=== PATIENT | male | born 1940 | race Caucasian/White ===

== ENCOUNTER 2017-02-04 14:57 | Emergency (ER) | payer MEDICARE, OTHER ==
[2017-02-04 15:34] VITALS: BP 156/67
--- NOTE | 2017-02-04 16:25 | EDM.PDOC ---
ED HPI GENERAL MEDICAL PROBLEM - General Chief Complaint: Back Pain or Injury Stated Complaint: BACK PAINS, [id number] Time Seen by Provider: 02/04/17 16:14 Source of Information: Reports: Patient History Limitations: Reports: No Limitations - History of Present Illness INITIAL COMMENTS - FREE TEXT/NARRATIVE: Patient comes emergency Department today with complaints of back spasms in his left lower back that started last night. The patient was vacuuming quite a bit yesterday which he typically does not do as it gives him back spasms in the past. Although his is rather physically disabled recently and he has had to do more housework. Since last night he has had intermittent spasms on his left flank region that started up higher and slowly has moved down his lower back primarily on the lateral aspect. His sharp shooting stabbing intermittent pain on the left side. He denies any numbness or tingling to his lower extremities. He denies any change in his bowel or bladder habits. Denies any pain into his groin or his testicles. He denies any hematuria dysuria. He states that he typically urinates quite frequently and no more than normal over the past 24 hours. He has tried some ibuprofen for this without improvement. Left Lower Back Pain Score (Numeric/FACES): 9 - Related Data Allergies Allergy/AdvReac Type Severity Reaction Status Date / Time amoxicillin Allergy Nausea and Verified 02/04/17 15:34 Vomiting hydrocodone Allergy Indigestion Verified 02/04/17 15:34 tramadol Allergy Hyperactivi Verified 02/04/17 15:34 ty Home Meds: Home Meds Multivitamin [Multivitamins] 1 each PO DAILY 12/23/14 [History] Rosuvastatin [Crestor] 20 mg PO BEDTIME 12/23/14 [History] Cyanocobalamin (Vitamin B-12) [Cyanocobalamin Injection] 1,000 mcg INJECT ASDIRECTED 03/13/15 [History] Aspirin [Ecotrin] 325 mg PO DAILY 02/04/17 [History] Past Medical History HEENT History: Reports: Other (See Below) Other HEENT History: reading glasses Cardiovascular History: Reports: High Cholesterol Respiratory History: Reports: None Gastrointestinal History: Reports: None Genitourinary History: Reports: None Musculoskeletal History: Reports: Arthritis Neurological History: Reports: TIA Psychiatric History: Reports: None Endocrine/Metabolic History: Reports: None Hematologic History: Reports: Other (See Below) Other Hematologic History: LEUKOPENIA Immunologic History: Reports: None Oncologic (Cancer) History: Reports: Prostate Dermatologic History: Reports: None Other Dermatologic History: NEOPLASM OF UNCERTIAN BEHAVIOR; CELLULITUS OF THE R LEG; SEBACOUS HYPERPLASIA - Infectious Disease History Infectious Disease History: Reports: Chicken Pox, Mumps - Past Surgical History HEENT Surgical History: Reports: Cataract Surgery Other Male Surgeries/Procedures: VASECTOMY Musculoskeletal Surgical History: Reports: Knee Replacement, Shoulder Surgery Social & Family History - Family History Family Medical History: Noncontributory - Tobacco Use Smoking Status *Q: Never Smoker Used Tobacco, but Quit: Yes Month Tobacco Last Used: 08/31/1997 Second Hand Smoke Exposure: No - Caffeine Use Caffeine Use: Reports: Coffee - Alcohol Use Days Per Week of Alcohol Use: 7 Number of Drinks Per Day: 2 Total Drinks Per Week: 14 - Recreational Drug Use Recreational Drug Use: No Drug Use in Last 12 Months: No - Living Situation & Occupation Living situation: Reports: , with Family Occupation: Retired ED ROS GENERAL - Review of Systems Review Of Systems: ROS reveals no pertinent complaints other than HPI. ED EXAM,LOWER BACK PAIN/INJURY - Physical Exam Exam: See Below Text/Narrative:: A very pleasant gentleman who is sitting quite comfortably and then all of a sudden has twinges of pain and grabs his left flank region that lasts for a very short period of time and resolves quite quickly and then he has some residual soreness he relates. The intermittent pain lasts for approximately 2-3 seconds. Exam Limited By: No Limitations General Appearance: Alert, WD/WN, No Apparent Distress Neck: Normal Inspection, Supple Respiratory/Chest: No Respiratory Distress, Lungs Clear, No Accessory Muscle Use Cardiovascular: Normal Peripheral Pulses, Regular Rate, Rhythm, No Edema GI/Abdominal: Normal Bowel Sounds, Non-Tender, No Organomegaly, No Distention, No Abnormal Bruit, No Mass (Male) Exam: Deferred Rectal (Males) Exam: Deferred Back Exam: Decreased Range of Motion, Other (Palpation of the posterior does not elicit any tenderness. The patient points to the left posterior axillary line in the flank region when he has a spasms. I do not feel any muscle spasms nor does he have any tenderness in that region on palpation. There is no bony deformity. No crepitus bruising swelling ecchymosis. Negative straight leg raise bilaterally.). No: Paraspinal Tenderness, Vertebral Tenderness Extremities: Normal Inspection. No: Rivera's Sign, Leg Pain Neurological: Alert, Normal Mood/Affect, Normal Dorsiflexion, CN II-XII Intact, Normal Plantar Flexion, Normal Reflexes, No Motor/Sensory Deficits, Oriented x 3 DTR - Lower Extremities: 2+: Knee (R), Knee (L), Ankle (R), Ankle (L) Skin Exam: Warm, Dry, Intact, Normal Color, No Rash Lymphatic: No Adenopathy Course - Vital Signs Last Recorded V/S: Last Vital Signs Temp 36.9 C 02/04/17 15:29 Pulse 86 02/04/17 15:29 Resp 16 02/04/17 15:29 BP 156/67 H 02/04/17 15:29 Pulse Ox 100 02/04/17 15:29 - Orders/Labs/Meds Orders: Active Orders 24 hr Category Date Time Status UA W/MICROSCOPIC [URIN] Stat Lab 02/04/17 16:28 Results Orphenadrine [Norflex] Med 02/04/17 16:30 Active 30 mg IM Q12H Medication Orders Orphenadrine Citrate (Norflex) 30 mg IM Q12H [facility] Last Admin: 02/04/17 16:36 Dose: 30 mg Labs: Laboratory Tests 02/04/17 Range/Units 16:28 Urine Color Yellow (YELLOW) Urine Appearance Clear (CLEAR) Urine pH 7.5 (5.0-9.0) Ur Specific [place] 1.015 (1.005-1.030) Urine Protein Negative (NEGATIVE) Urine Glucose (UA) Negative (NEGATIVE) Urine Ketones Negative (NEGATIVE) Urine Occult Blood Negative (NEGATIVE) Urine Nitrite Negative (NEGATIVE) Urine Bilirubin Negative (NEGATIVE) Urine Urobilinogen 0.2 (0.2-1.0) mg/dL Ur Leukocyte Esterase Negative (NEGATIVE) Meds: Medications Generic Name Dose Route Start Last Admin Trade Name Freq PRN Reason Stop Dose Admin Orphenadrine Citrate 30 mg 02/04/17 16:30 02/04/17 16:36 Norflex IM 30 mg Q12H [facility] Administration - Re-Assessments/Exams Free Text/Narrative Re-Assessment/Exam: 02/04/17 16:54 Urinalysis is negative for any blood. He states that the muscle spasms are much less in intensity and less frequently happening. Her flanks did improve his symptoms quite appropriately. He has used Valium for this in the past and would like to try that again. I did caution him with sedation on this. Use this sparingly. Departure - Departure Time of Disposition: 16:55 Disposition: Home, Self-Care 01 Clinical Impression: Muscle spasm of back - Discharge Information Instructions: Muscle Strain, [id number], Back Injury Prevention, [id number] , Muscle Cramps and Spasms, [id number] Forms: ED Department Discharge Additional Instructions: Tylenol and/or ibuprofen as needed for pain. Heat or ice to the affected area which ever works best for you. Do not bedridden yourself nor due to much physical activity as both these can worsen her symptoms. Valium 2.5 mg 3 times a day when necessary muscle spasms or back pain. Cautioned sedation. Also when standing or making postural movement changes take your times that you do not get lightheaded or dizzy from the medication and fall. Return emergency department if new or worsening symptoms. Recheck primary care provider in the next 4-6 days if not improving sooner if worse. - My Orders Last 24 Hours: My Active Orders 02/04/17 16:28 UA W/MICROSCOPIC [URIN] Stat 02/04/17 16:30 Orphenadrine [Norflex] 30 mg IM Q12H - Assessment/Plan Last 24 Hours: My Active Orders 02/04/17 16:28 UA W/MICROSCOPIC [URIN] Stat 02/04/17 16:30 Orphenadrine [Norflex] 30 mg IM Q12H Assessment:: Muscle spasm back. Plan: Tylenol and/or ibuprofen as needed for pain. Heat or ice to the affected area which ever works best for you. Do not bedridden yourself nor due to much physical activity as both these can worsen her symptoms. Valium 2.5 mg 3 times a day when necessary muscle spasms or back pain. Cautioned sedation. Also when standing or making postural movement changes take your times that you do not get lightheaded or dizzy from the medication and fall. Return emergency department if new or worsening symptoms. Recheck primary care provider in the next 4-6 days if not improving sooner if worse.
[2017-02-04] MEDS ORDERED: Diazepam 5 MG Tab PO ONE (16:52)
[2017-02-04] MEDS ORDERED: Diazepam 5 MG Tab ONE (16:52)
== END 2017-02-04 17:16 | disposition home or self-care (01) ==
LOC: DL.ED 14:57
DX: M62.830 Muscle spasm of back (principal); E78.00 Pure hypercholesterolemia, unspecified; M19.90 Unspecified osteoarthritis, unspecified site; Z88.1 Allergy status to other antibiotic agents; Z88.6 Allergy status to analgesic agent; Z88.8 Allergy status to other drugs, medicaments and biological substances; Z79.899 Other long term (current) drug therapy; Z79.82 Long term (current) use of aspirin; Z98.49 Cataract extraction status, unspecified eye; Z96.659 Presence of unspecified artificial knee joint
CPT/HCPCS: 81001; 96372; 99283; J2360; A9270-GY

== ENCOUNTER 2018-08-27 07:01 | Day surgery (SDC) | payer OTHER, MEDICARE ==
[2018-08-27] MEDS ORDERED: Ondansetron 4 MG/2 ML SDV IV ONE (07:02)
[2018-08-27] MEDS ORDERED: Glycopyrrolate 0.2 MG/ML 2 ML SDV IV ONE (07:02)
[2018-08-27] MEDS ORDERED: Midazolam 1 MG/ML 2 ML SDV IV ONE (07:02)
[2018-08-27] MEDS ORDERED: fentaNYL 100 MCG/2 ML SDV IV ONE (07:02)
[2018-08-27] MEDS ORDERED: Etomidate 2 MG/ML 20 ML SDV IVPUSH ONE (07:02)
[2018-08-27] MEDS ORDERED: Lactated Ringers 1,000 ML IV SCH (07:30)
[2018-08-27] MEDS ORDERED: Lidocaine 1% 30 ML SDV ONE (07:50)
[2018-08-27] MEDS ORDERED: ceFAZolin 1 GM in Premix Bag 1 BAG IV ONE (08:00)
[2018-08-27] MEDS ORDERED: Lidocaine 1% 30 ML SDV INJECT ONE (09:07)
[2018-08-27] MEDS ORDERED: Acetaminophen 325 MG Tab PO ONE (10:10)
[2018-08-27] MEDS ORDERED: fentaNYL 100 MCG/2 ML SDV IVPUSH ONE ×2 (10:13→10:30)
[2018-08-27] MEDS ORDERED: Acetaminophen/oxyCODONE 325-5 MG Tab PO ONE (12:03)
[2018-08-27] MEDS ORDERED: Sodium Chloride 0.9% 10 ML Syringe IV PRN (13:30)
[2018-08-27] MEDS ORDERED: Sodium Chloride 0.9% 10 ML Syringe FLUSH PRN (13:34)
[2018-08-27] MEDS: Morphine 2 MG/ML Syringe IVPUSH PRN ×2 (13:42→17:17)
--- NOTE | 2018-08-27 15:16 | OR ---
DATE: 08/27/2018 PREOPERATIVE DIAGNOSIS: Left inguinal hernia. POSTOPERATIVE DIAGNOSIS: Left inguinal hernia. PROCEDURE: Open repair of left indirect inguinal hernia with mesh. ANESTHESIA: General. ESTIMATED BLOOD LOSS: Minimal. SPECIMEN: Cord lipoma. INDICATION FOR PROCEDURE: This 78-year-old male has a physical examination compatible with a left inguinal hernia. DESCRIPTION OF PROCEDURE: After adequate preparation, a transverse incision was made over the left groin and carried down through the external oblique. The cord structures were identified and elevated out of the inguinal floor. The examination showed a large cord lipoma, which was amputated from the cord and an indirect inguinal hernia sac. The sac was dissected free down to the deep inguinal ring and the sac was simply inverted without being tied off. A Prolene mesh was used to strengthen the inguinal floor and along the inguinal ligament was sewn with a running 0 Prolene suture. The upper edge was sewn interruptedly with 0 Prolene to anchor this to the rectus sheath. The mesh had a keyhole in this and the cord was brought through this. The tails of the mesh were then sewn laterally. This seemed adequately strengthen the deep inguinal ring area and inguinal floor. The external oblique was oversewn over the mesh repair. Vicryl was used for the subcutaneous tissue and 4-0 for the skin. [facility] /[id number]
[2018-08-27] MEDS: Acetaminophen/oxyCODONE 325-5 MG Tab PO PRN (19:19)
[2018-08-27] MEDS ORDERED: Calcium Carbonate 500 MG Tab.Chew PO PRN (21:49)
[2018-08-28] MEDS: Acetaminophen/oxyCODONE 325-5 MG Tab PO PRN ×2 (00:51→09:32)
[2018-08-28] MEDS: Morphine 2 MG/ML Syringe IVPUSH PRN (00:52)
[2018-08-28 08:03] VITALS: BP 112/78
--- NOTE | 2018-08-28 09:05 | PCM.SN ---
- Free Text/Narrative Note: Stable POD#1. Still moderate pain. Would looks good, minimal swelling. Afebrile now. Post op discharge instructions given. No particular activity restrictions. Will FU in surgery clinic if needed. Percocet (#20) given for pain. Resume home meds and diet. Can discharge.
== END 2018-08-28 10:35 | disposition home or self-care (01) ==
LOC: DL.SDS 07:01 → DL.MS 13:29 → DL.SDS 08-28 10:35
PROVIDERS: ATTEND Surgery
DX: K40.90 Unilateral inguinal hernia, without obstruction or gangrene, not specified as recurrent (principal); D17.6 Benign lipomatous neoplasm of spermatic cord; E78.5 Hyperlipidemia, unspecified; Z87.891 Personal history of nicotine dependence; Z86.73 Personal history of transient ischemic attack (TIA), and cerebral infarction without residual deficits; Z79.899 Other long term (current) drug therapy; Z88.0 Allergy status to penicillin; Z88.5 Allergy status to narcotic agent
CPT/HCPCS: 00830; 49505; A9270; C1781; J0690; J2250; J2270; J2405; J3010; J3490; J7120; 88304

== ENCOUNTER 2018-09-06 05:22 | Emergency (ER) | payer OTHER, MEDICARE ==
[2018-09-06 05:30] VITALS: BP 133/63
[2018-09-06] MEDS ORDERED: Sodium Chloride 0.9% 10 ML Syringe FLUSH PRN (05:49)
--- NOTE | 2018-09-06 05:53 | EDM.PDOC ---
<Jessica Brown - Last Filed: 09/06/18 05:56> ED HPI GENERAL MEDICAL PROBLEM - General Chief Complaint: Wound Recheck Stated Complaint: HERNIA INFECTION [id number] Time Seen by Provider: 09/06/18 05:40 Source of Information: Reports: Patient History Limitations: Reports: No Limitations - History of Present Illness INITIAL COMMENTS - FREE TEXT/NARRATIVE: Pt to ER with c/o a hard lump that seems to be growing at an incisional site. Patient had a left inguinal hernia repair on 08/27/18. He states over the past few days he has developed a hard lump that seems to be growing under the incisional site. He denies any drainage from the site. Denies fever or chills, N /V/D. Onset: Gradual Left Lower Abdomen Pain Score (Numeric/FACES): 3 - Related Data Allergies Allergy/AdvReac Type Severity Reaction Status Date / Time amoxicillin AdvReac Nausea and Verified 09/06/18 05:30 Vomiting hydrocodone AdvReac Indigestion Verified 09/06/18 05:30 tramadol AdvReac Hyperactivi Verified 09/06/18 05:30 ty Home Meds: Home Meds Rosuvastatin [Crestor] 20 mg PO BEDTIME 12/23/14 [History] Cyanocobalamin (Vitamin B-12) [Cyanocobalamin Injection] 1,000 mcg INJECT ASDIRECTED 03/13/15 [History] Aspirin [Ecotrin] 325 mg PO DAILY 02/04/17 [History] Acetaminophen 650 mg PO ASDIRECTED PRN 08/24/18 [History] Ibuprofen 600 mg PO TID 08/24/18 [History] Multivitamin-Min/Iron/FA/Vit K [Multi-Day Plus Minerals Tablet] 1 tab PO DAILY 08/24/18 [History] Past Medical History HEENT History: Reports: Other (See Below) Other HEENT History: reading glasses. UPPER DENTURE PLATE AND LOWER PARTIAL PLATE Cardiovascular History: Reports: High Cholesterol, Other (See Below) Other Cardiovascular History: PERIPHERAL ARTERY DISEASE Respiratory History: Reports: None Gastrointestinal History: Reports: Colon Polyp Genitourinary History: Reports: Urinary Incontinence, Other (See Below) Other Genitourinary History: HX OF PROSTRATE CANCER Musculoskeletal History: Reports: Arthritis Neurological History: Reports: Headaches, Chronic, TIA Other Neuro History: HX OF [place] Psychiatric History: Reports: None Endocrine/Metabolic History: Reports: None Hematologic History: Reports: Anemia, B12 Deficiency, Other (See Below) Other Hematologic History: LEUKOPENIA Immunologic History: Reports: None Oncologic (Cancer) History: Reports: Prostate Dermatologic History: Reports: Cellulitis Other Dermatologic History: NEOPLASM OF UNCERTIAN BEHAVIOR; CELLULITUS OF THE R LEG (DENIES); SEBACOUS HYPERPLASIA - Infectious Disease History Infectious Disease History: Reports: Chicken Pox, Mumps Other Infectious Disease History: DENIES MUMPS 08-24-18 - Past Surgical History Head Surgeries/Procedures: Reports: None HEENT Surgical History: Reports: Cataract Surgery, Oral Surgery Cardiovascular Surgical History: Reports: None Respiratory Surgical History: Reports: None GI Surgical History: Reports: Appendectomy, Colonoscopy, Hernia Repair/Other, Polypectomy Male Surgical History: Reports: Prostatectomy Other Male Surgeries/Procedures: VASECTOMY Endocrine Surgical History: Reports: None Neurological Surgical History: Reports: None Musculoskeletal Surgical History: Reports: Knee Replacement, Shoulder Surgery Oncologic Surgical History: Reports: None Dermatological Surgical History: Reports: None Social & Family History - Family History Family Medical History: Noncontributory - Tobacco Use Smoking Status *Q: Never Smoker Second Hand Smoke Exposure: No - Caffeine Use Caffeine Use: Reports: Coffee Other Caffeine Use: COFFEE AVERAGE OF 2-3 CUPS DAILY - Recreational Drug Use Recreational Drug Use: No - Living Situation & Occupation Living situation: Reports: , with Family Occupation: Retired ED ROS GENERAL - Review of Systems Review Of Systems: ROS reveals no pertinent complaints other than HPI. ED EXAM, GI/ABD - Physical Exam Exam: See Below Exam Limited By: No Limitations General Appearance: Alert, WD/WN, No Apparent Distress Eyes: Bilateral: Normal Appearance, EOMI Ears: Normal External Exam, Hearing Grossly Normal Nose: Normal Inspection Throat/Mouth: Normal Inspection, Normal Voice, No Airway Compromise Head: Atraumatic, Normocephalic Neck: Normal Inspection, Supple, Non-Tender, Full Range of Motion Respiratory/Chest: No Respiratory Distress, Lungs Clear, Normal Breath Sounds, No Accessory Muscle Use, Chest Non-Tender Cardiovascular: Normal Peripheral Pulses, Regular Rate, Rhythm, No Edema, No Gallop, No JVD, No Murmur, No Rub GI/Abdominal Exam: Normal Bowel Sounds, Mass (at Left inguinal hernia repair incisional site. ) (Male) Exam: Deferred Rectal (Males) Exam: Deferred Back Exam: Normal Inspection, Full Range of Motion Extremities: Normal Inspection, Normal Range of Motion, Non-Tender, Normal Capillary Refill, No Pedal Edema Neurological: Alert, Oriented, CN II-XII Intact, Normal Cognition, Normal Gait, Normal Reflexes, No Motor/Sensory Deficits Psychiatric: Normal Affect, Normal Mood Skin Exam: Warm, Dry, Other (Left inguinal hernia repair incisional site is dry and intact without drainage, erythema or warmth. Does have a mass under the incisional site. ) Lymphatic: No Adenopathy Course - Vital Signs Last Recorded V/S: Last Vital Signs Temp 35.7 C 09/06/18 05:25 Pulse 79 09/06/18 05:25 Resp 18 09/06/18 05:25 BP 133/63 09/06/18 05:25 Pulse Ox 100 09/06/18 05:25 - Orders/Labs/Meds Orders: Active Orders 24 hr Category Date Time Status Peripheral IV Care [RC] . DIRECTED Care 09/06/18 05:49 Active Abdomen Pelvis w Cont [CT] Urgent Exams 09/06/18 07:17 Ordered Sodium Chloride 0.9% [Saline Flush] Med 09/06/18 05:49 Active 10 ml FLUSH ASDIRECTED PRN Peripheral IV Insertion Adult [OM.PC] Stat Oth 09/06/18 05:49 Ordered Medication Orders Sodium Chloride (Saline Flush) 10 ml FLUSH ASDIRECTED PRN PRN Reason: Keep Vein Open Last Admin: 09/06/18 06:06 Dose: 10 ml Labs: Laboratory Tests 09/06/18 09/06/18 Range/Units 06:04 06:04 WBC 4.3 L (5.0-10.0) 10^3/uL RBC 3.36 L (4.6-6.2) 10^6/uL Hgb 11.1 L (14.0-18.0) g/dL Hct 32.9 L (40.0-54.0) % MCV 97.9 (80-100) fL MCH 33.0 (27.0-34.0) pg MCHC 33.7 (33.0-35.0) g/dL Plt Count 280 D (150-450) 10^3/uL Neut % (Auto) 25.4 L (42.2-75.2) % Lymph % (Auto) 42.7 (20.5-50.1) % [place] % (Auto) 22.0 H (2-8) % Eos % (Auto) 6.7 H (1.0-3.0) % Baso % (Auto) 3.2 H (0.0-1.0) % Add Manual Diff Yes Neutrophils % (Manual) 30 L (42-75) % Band Neutrophils % 2 % Lymphocytes % (Manual) 46 (20-50) % Monocytes % (Manual) 19 H (2-8) % Eosinophils % (Manual) 3 (1-3) % Sodium 133 L (135-145) mmol/L Potassium 4.3 (3.6-5.0) mmol/L Chloride 99 L (101-111) mmol/L Carbon Dioxide 24.0 (21.0-31.0) mmol/L Anion Gap 14.3 BUN 16 (7-18) mg/dL Creatinine 0.9 (0.6-1.3) mg/dL Est Cr Clr Drug Dosing 63.33 mL/min Estimated GFR (MDRD) > 60 BUN/Creatinine Ratio 17.77 Glucose 88 (74-105) mg/dL Calcium 8.9 (8.4-10.2) mg/dl Total Bilirubin 0.8 (0.2-1.0) mg/dL AST 24 (10-42) IU/L ALT 19 (10-60) IU/L Alkaline Phosphatase 31 L (42-121) IU/L Total Protein 6.7 (6.7-8.2) g/dl Albumin 3.7 (3.2-5.5) g/dl Globulin 3.0 Albumin/Globulin Ratio 1.23 Meds: Medications Generic Name Dose Route Start Last Admin Trade Name Freq PRN Reason Stop Dose Admin Sodium Chloride 10 ml 09/06/18 05:49 09/06/18 06:06 Saline Flush FLUSH 10 ml ASDIRECTED PRN Administration Keep Vein Open Discontinued Medications Generic Name Dose Route Start Last Admin Trade Name Freq PRN Reason Stop Dose Admin Iopamidol 75 ml 09/06/18 07:17 09/06/18 07:38 Isovue-300 (61%) IVPUSH 09/06/18 07:18 75 ml ONETIME ONE Administration - Radiology Interpretation Free Text/Narrative:: Abdomen/Pelvis CT See rad report Departure - Departure Disposition: Home, Self-Care 01 Clinical Impression: Groin hematoma Qualifiers: Encounter type: initial encounter Qualified Code(s): S30.1XXA - Contusion of abdominal wall, initial encounter - Discharge Information Forms: ED Department Discharge Care Plan Goals: The patient was advised of the examination, lab and CT results during the visit. The patient was encouraged to use a warm pack to the area over the next couple of days. If the patient has any additional symptoms or concerns, the patient should either return to the emergency department or visit his primary care facility. - My Orders Last 24 Hours: My Active Orders 09/06/18 07:17 Abdomen Pelvis w Cont [CT] Urgent - Assessment/Plan Last 24 Hours: My Active Orders 09/06/18 07:17 Abdomen Pelvis w Cont [CT] Urgent <Eric Stacy M - Last Filed: 09/06/18 08:22> Course - Re-Assessments/Exams Free Text/Narrative Re-Assessment/Exam: 09/06/18 07:49 Patient care was taken over at shift change. Assessment and documentation were reviewed. I agree with documentation. Departure - Departure Time of Disposition: 08:19 Condition: Fair - Discharge Information *PRESCRIPTION DRUG MONITORING PROGRAM REVIEWED*: Not Applicable *COPY OF PRESCRIPTION DRUG MONITORING REPORT IN PATIENT HIMANSHU: Not Applicable
[2018-09-06 06:56] LABS: ANION GAP 14.3; CHLORIDE,CL 99 mmol/L (101-111); SODIUM,NA 133 mmol/L (135-145)
[2018-09-06] MEDS ORDERED: Iopamidol 612 MG/ML 75 ML Bottle IVPUSH ONE (07:17)
== END 2018-09-06 08:31 | disposition home or self-care (01) ==
LOC: DL.ED 05:22
DX: S30.1XXA Contusion of abdominal wall, initial encounter (principal); E78.00 Pure hypercholesterolemia, unspecified; I73.9 Peripheral vascular disease, unspecified; Z98.890 Other specified postprocedural states; Z88.1 Allergy status to other antibiotic agents; Z88.5 Allergy status to narcotic agent; Z79.82 Long term (current) use of aspirin; Z79.899 Other long term (current) drug therapy; X58.XXXA Exposure to other specified factors, initial encounter
CPT/HCPCS: 36415; 74177; 80053; 85025; 99284; Q9967

== ENCOUNTER 2020-11-24 23:19 | Emergency (ER) | payer MEDICARE, OTHER ==
[2020-11-24 23:28] VITALS: BP 119/97; PULSE 100
[2020-11-24] MEDS ORDERED: Sodium Chloride 0.9% 1,000 ML IV ONE (23:40)
[2020-11-24] MEDS ORDERED: Morphine 2 MG/ML SYRINGE IVPUSH ONE (23:41)
--- NOTE | 2020-11-24 23:49 | EDM.PDOC ---
ED HPI GENERAL MEDICAL PROBLEM - General Chief Complaint: Gastrointestinal Problem Stated Complaint: STOMACH ACHE Time Seen by Provider: 11/24/20 23:35 Source of Information: Reports: Patient History Limitations: Reports: No Limitations - History of Present Illness INITIAL COMMENTS - FREE TEXT/NARRATIVE: This 80 yo male patient reports to the ED with increased abdominal pain. The patient reports his abdominal pain started this afternoon, but has gotten worse throughout the night. The patient reports his pain comes and goes about every 1- 2 minutes. The patient reports when his pain is increased his abdomen feels "hard as a rock". The patient reports he had a normal bowel movement this evening, but does have a history of hard bowel movements. The patient reports he has not been taking his stool softeners and he has not been drinking much fluid. The patient has a history of a hernia surgery and prostate cancer (treated with radiation). Onset: Today Duration: Hour(s):, Intermittent Location: Reports: Abdomen Quality: Reports: Ache, Sharp, Stabbing Severity: Moderate Improves with: Reports: None Worsens with: Reports: None Context: Reports: Other Associated Symptoms: Reports: No Other Symptoms Epigastric Pain Score (Numeric/FACES): 4 - Related Data Allergies Allergy/AdvReac Type Severity Reaction Status Date / Time amoxicillin AdvReac Nausea and Verified 09/24/18 11:17 Vomiting hydrocodone AdvReac Indigestion Verified 09/24/18 11:17 tramadol AdvReac Hyperactivi Verified 09/24/18 11:17 ty Home Meds: Home Meds Rosuvastatin [Crestor] 20 mg PO BEDTIME 12/23/14 [History] Cyanocobalamin (Vitamin B-12) [Cyanocobalamin Injection] 1,000 mcg INJECT ASDIRECTED 03/13/15 [History] Aspirin [Ecotrin] 325 mg PO DAILY 02/04/17 [History] Acetaminophen 650 mg PO Q6HR PRN 08/24/18 [History] Ibuprofen 600 mg PO TID PRN 08/24/18 [History] Multivitamin-Min/Iron/FA/Vit K [Multi-Day Plus Minerals Tablet] 1 tab PO DAILY 08/24/18 [History] Famotidine 20 mg PO DAILY 10/26/20 [History] Oxybutynin 5 mg PO BEDTIME 10/26/20 [History] Past Medical History HEENT History: Reports: Other (See Below) Other HEENT History: reading glasses. UPPER DENTURE PLATE AND LOWER PARTIAL PLATE Cardiovascular History: Reports: High Cholesterol, Other (See Below) Other Cardiovascular History: PERIPHERAL ARTERY DISEASE Respiratory History: Reports: None Gastrointestinal History: Reports: Colon Polyp Genitourinary History: Reports: Urinary Incontinence, Other (See Below) Other Genitourinary History: HX OF PROSTRATE CANCER Musculoskeletal History: Reports: Arthritis Neurological History: Reports: Headaches, Chronic, TIA Other Neuro History: HX OF HEMICHOREA Psychiatric History: Reports: None Endocrine/Metabolic History: Reports: None Hematologic History: Reports: Anemia, B12 Deficiency, Other (See Below) Other Hematologic History: LEUKOPENIA Immunologic History: Reports: None Oncologic (Cancer) History: Reports: Prostate Dermatologic History: Reports: Cellulitis Other Dermatologic History: NEOPLASM OF UNCERTIAN BEHAVIOR; CELLULITUS OF THE R LEG (DENIES); SEBACOUS HYPERPLASIA - Infectious Disease History Infectious Disease History: Reports: Chicken Pox, Mumps Other Infectious Disease History: DENIES MUMPS 08-24-18 - Past Surgical History Head Surgeries/Procedures: Reports: None HEENT Surgical History: Reports: Cataract Surgery, Oral Surgery Cardiovascular Surgical History: Reports: None Respiratory Surgical History: Reports: None GI Surgical History: Reports: Appendectomy, Colonoscopy, Hernia Repair/Other, Polypectomy Male Surgical History: Reports: Prostatectomy Other Male Surgeries/Procedures: VASECTOMY Endocrine Surgical History: Reports: None Neurological Surgical History: Reports: None Musculoskeletal Surgical History: Reports: Knee Replacement, Shoulder Surgery Oncologic Surgical History: Reports: None Dermatological Surgical History: Reports: None Social & Family History - Family History Family Medical History: No Pertinent Family History - Tobacco Use Tobacco Use Status *Q: Never Tobacco User Second Hand Smoke Exposure: No - Caffeine Use Caffeine Use: Reports: Coffee Other Caffeine Use: COFFEE AVERAGE OF 2-3 CUPS DAILY - Recreational Drug Use Recreational Drug Use: No - Living Situation & Occupation Living situation: Reports: , with Family Occupation: Retired ED ROS GENERAL - Review of Systems Review Of Systems: Comprehensive ROS is negative, except as noted in HPI. ED EXAM, GI/ABD - Physical Exam Exam: See Below Exam Limited By: No Limitations General Appearance: Alert, WD/WN, Moderate Distress Eyes: Bilateral: Normal Appearance, EOMI Ears: Normal External Exam, Normal Canal, Hearing Grossly Normal, Normal TMs Nose: Normal Inspection, Normal Mucosa, No Blood Throat/Mouth: Normal Inspection, Normal Lips, Normal Teeth, Normal Gums, Normal Oropharynx, Normal Voice, No Airway Compromise Head: Atraumatic, Normocephalic Neck: Normal Inspection, Supple, Non-Tender, Full Range of Motion Respiratory/Chest: No Respiratory Distress, Lungs Clear, Normal Breath Sounds, No Accessory Muscle Use, Chest Non-Tender Cardiovascular: Normal Peripheral Pulses, Regular Rate, Rhythm, No Edema, No Gallop, No JVD, No Murmur, No Rub GI/Abdominal Exam: Rigid, Tender (upper abdomen) (Male) Exam: Deferred Rectal (Males) Exam: Deferred Back Exam: Normal Inspection, Full Range of Motion, NT Extremities: Normal Inspection, Normal Range of Motion, Non-Tender, Normal Capillary Refill, No Pedal Edema Neurological: Alert, Oriented, CN II-XII Intact, Normal Cognition, Normal Gait, Normal Reflexes, No Motor/Sensory Deficits Psychiatric: Normal Affect, Normal Mood Skin Exam: Warm, Dry, Intact, Normal Color, No Rash Lymphatic: No Adenopathy Course - Vital Signs Last Recorded V/S: Last Vital Signs Temp 36.2 C 11/24/20 23:23 Pulse 100 11/24/20 23:23 Resp 18 11/24/20 23:23 BP 119/97 H 11/24/20 23:23 Pulse Ox 100 11/24/20 23:23 - Orders/Labs/Meds Orders: Active Orders 24 hr Category Date Time Status Abdomen Pelvis wo Cont [CT] Urgent Exams 11/25/20 00:18 Taken CULTURE BLOOD [BC] Stat Lab 11/24/20 23:47 Received UA RFX MARILUZ AND CULT IF INDIC [URIN] Urgent Lab 11/24/20 23:39 Ordered Sodium Chloride 0.9% [Normal Saline] 1,000 ml Med 11/24/20 23:40 Active IV .BOLUS Medication Orders Sodium Chloride (Normal Saline) 1,000 mls @ 250 mls/hr IV .BOLUS ONE Stop: 11/25/20 03:39 Last Admin: 11/24/20 23:48 Dose: 250 mls/hr Documented by: SOHAN Labs: Laboratory Tests 11/24/20 11/24/20 11/24/20 Range/Units 23:47 23:47 23:47 WBC 3.9 L (5.0-10.0) 10^3/uL RBC 3.37 L (4.6-6.2) 10^6/uL Hgb 10.4 L (14.0-18.0) g/dL Hct 32.2 L (40.0-54.0) % MCV 95.5 (80-100) fL MCH 30.9 (27.0-34.0) pg MCHC 32.3 L (33.0-35.0) g/dL Plt Count 201 D (150-450) 10^3/uL Neut % (Auto) 41.6 L (42.2-75.2) % Lymph % (Auto) 24.9 (20.5-50.1) % Real % (Auto) 20.6 H (2-8) % Eos % (Auto) 6.2 H (1.0-3.0) % Baso % (Auto) 6.7 H (0.0-1.0) % Add Manual Diff Yes Neutrophils % (Manual) 45 (42-75) % Band Neutrophils % 1 % Lymphocytes % (Manual) 35 (20-50) % Monocytes % (Manual) 12 H (2-8) % Eosinophils % (Manual) 6 H (1-3) % Metamyelocytes % 1 Sodium 137 (136-145) mmol/L Potassium 4.3 (3.5-5.1) mmol/L Chloride 101 (98-107) mmol/L Carbon Dioxide 24 (21-32) mmol/L Anion Gap 16.3 H (7-13) mEq/L BUN 24 H (7-18) mg/dL Creatinine 1.57 H (0.70-1.30) mg/dL Est Cr Clr Drug Dosing 36.28 mL/min Estimated GFR (MDRD) 43 BUN/Creatinine Ratio 15.3 (No establ ref range) Glucose 121 H (70-99) mg/dL Lactic Acid 0.8 (0.4-2.0) mmol/L Calcium 8.8 (8.5-10.1) mg/dL Total Bilirubin 0.2 (0.2-1.0) mg/dL AST 24 (15-37) U/L ALT 22 (16-63) U/L Alkaline Phosphatase 50 (46-116) U/L Total Protein 6.9 (6.4-8.2) g/dL Albumin 3.6 (3.4-5.0) g/dL Globulin 3.3 Albumin/Globulin Ratio 1.1 Amylase 59 (25-115) U/L Lipase 153 (73-393) U/L Meds: Medications Generic Name Dose Route Start Last Admin Trade Name Freq PRN Reason Stop Dose Admin Sodium Chloride 1,000 mls @ 250 mls/hr 11/24/20 23:40 11/24/20 23:48 Normal Saline IV 11/25/20 03:39 250 mls/hr .BOLUS ONE Administration Discontinued Medications Generic Name Dose Route Start Last Admin Trade Name Freq PRN Reason Stop Dose Admin Morphine Sulfate 2 mg 11/24/20 23:41 11/24/20 23:48 Morphine 2 Mg/Ml Syringe IVPUSH 11/24/20 23:42 2 mg ONETIME ONE Administration - Radiology Interpretation Free Text/Narrative:: [facility] Final Radiology Report Call: [phone] assistance Online chat: [email or web address] Name: JIL HORAN Age: 80Years M Date: 11/25/2020 SSN: -- : [id number] Study: CT ABDOMEN PELVIS WO CONT Requesting Physician: Eric Stacy Images: 250 Addl Studies: Provided Clinical History: Abdominal pain Contrast: Without Contrast Medium: Contrast Amount: Contrast Method: Page 1 of 2 PROCEDURE INFORMATION: Exam: CT Abdomen And Pelvis Without Contrast Exam date and time: 11/25/2020 12:36 AM Age: 80 years old Clinical indication: Abdominal pain TECHNIQUE: Imaging protocol: Computed tomography of the abdomen and pelvis without contrast. Radiation optimization: All CT scans at this facility use at least one of these dose optimization techniques: automated exposure control; mA and/or kV adjustment per patient size (includes targeted exams where dose is matched to clinical indication); or iterative reconstruction. COMPARISON: CT Abdomen Pelvis w Cont 09/06/2018 7:26 AM FINDINGS: Liver: Normal. No mass. Gallbladder and bile ducts: Normal. No calcified stones. No ductal dilation. Pancreas: Normal. No ductal dilation. Spleen: Normal. No splenomegaly. Adrenal glands: Normal. No mass. Kidneys and ureters: Normal. No hydronephrosis. Stomach and bowel: Multiple fluid-filled, dilated loops of small bowel in the abdomen and pelvis with the transition point in the lower pelvis, consistent with small-bowel obstruction. Appendix: No evidence of appendicitis. Intraperitoneal space: Unremarkable. No free air. No significant fluid collection. Vasculature: Unremarkable. No abdominal aortic aneurysm. Lymph nodes: Unremarkable. No enlarged lymph nodes. Urinary bladder: Unremarkable as visualized. Reproductive: Postoperative changes of prostatectomy. JIL HORAN | Final Radiology Report CONFIDENTIALITY STATEMENT This report is intended only for use by the referring physician, and only in accordance with law. If you received this in error, call [phone]. Page 2 of 2 Bones/joints: Unremarkable. No acute fracture. Soft tissues: Unremarkable. IMPRESSION: Small bowel obstruction with transition point in the pelvis, likely related to an adhesion secondary to prostatectomy. Thank you for allowing us to participate in the care of your patient. Dictated and Authenticated by: Maddie Marie MD 11/25/2020 1:26 AM Central Time ([place] & [place]) Departure - Departure Time of Disposition: 02:03 Disposition: DC/Tfer to [facility] 02 Condition: Fair Clinical Impression: Small bowel obstruction, Elevated serum creatinine - Discharge Information *PRESCRIPTION DRUG MONITORING PROGRAM REVIEWED*: Not Applicable *COPY OF PRESCRIPTION DRUG MONITORING REPORT IN PATIENT HIMANSHU: Not Applicable Forms: Interfacility Transfer EMTALA Care Plan Goals: Discussed the patient's history, examination, lab, CT and treatments with Dr. Garcia (Hospitalist with [facility] in [place]). Dr. Garcia accepted the patient for continued evaluation and further management as an inpatient at [facility]. The patient will be transported by [facility]. Sepsis Event Note (ED) - Evaluation Sepsis Screening Result: No Definite Risk - Focused Exam Vital Signs: Vital Signs Temp Pulse Resp BP Pulse Ox 11/24/20 23:23 36.2 C 100 18 119/97 H 100 - My Orders Last 24 Hours: My Active Orders 11/24/20 23:39 UA RFX MARILUZ AND CULT IF INDIC [URIN] Urgent 11/24/20 23:40 Sodium Chloride 0.9% [Normal Saline] 1,000 ml IV .BOLUS 11/24/20 23:47 CULTURE BLOOD [BC] Stat 11/25/20 00:18 Abdomen Pelvis wo Cont [CT] Urgent - Assessment/Plan Last 24 Hours: My Active Orders 11/24/20 23:39 UA RFX MARILUZ AND CULT IF INDIC [URIN] Urgent 11/24/20 23:40 Sodium Chloride 0.9% [Normal Saline] 1,000 ml IV .BOLUS 11/24/20 23:47 CULTURE BLOOD [BC] Stat 11/25/20 00:18 Abdomen Pelvis wo Cont [CT] Urgent
[2020-11-25 00:16] LABS: ANION GAP 16.3 mEq/L (7-13)
--- NOTE | 2020-11-25 01:26 | CT ---
PROCEDURE INFORMATION: Exam: CT Abdomen And Pelvis Without Contrast Exam date and time: 11/25/2020 12:36 AM Age: 80 years old Clinical indication: Abdominal pain TECHNIQUE: Imaging protocol: Computed tomography of the abdomen and pelvis without contrast. Radiation optimization: All CT scans at this facility use at least one of these dose optimization techniques: automated exposure control; mA and/or kV adjustment per patient size (includes targeted exams where dose is matched to clinical indication); or iterative reconstruction. COMPARISON: CT Abdomen Pelvis w Cont 09/06/2018 7:26 AM FINDINGS: Liver: Normal. No mass. Gallbladder and bile ducts: Normal. No calcified stones. No ductal dilation. Pancreas: Normal. No ductal dilation. Spleen: Normal. No splenomegaly. Adrenal glands: Normal. No mass. Kidneys and ureters: Normal. No hydronephrosis. Stomach and bowel: Multiple fluid-filled, dilated loops of small bowel in the abdomen and pelvis with the transition point in the lower pelvis, consistent with small-bowel obstruction. Appendix: No evidence of appendicitis. Intraperitoneal space: Unremarkable. No free air. No significant fluid collection. Vasculature: Unremarkable. No abdominal aortic aneurysm. Lymph nodes: Unremarkable. No enlarged lymph nodes. Urinary bladder: Unremarkable as visualized. Reproductive: Postoperative changes of prostatectomy. Bones/joints: Unremarkable. No acute fracture. Soft tissues: Unremarkable. IMPRESSION: Small bowel obstruction with transition point in the pelvis, likely related to an adhesion secondary to prostatectomy.
== END 2020-11-25 02:41 ==
LOC: DL.ED 23:19
DX: K56.609 Unspecified intestinal obstruction, unspecified as to partial versus complete obstruction (principal); M19.90 Unspecified osteoarthritis, unspecified site; E78.00 Pure hypercholesterolemia, unspecified; R79.89 Other specified abnormal findings of blood chemistry; Z88.0 Allergy status to penicillin; Z88.5 Allergy status to narcotic agent; Z79.82 Long term (current) use of aspirin; Z79.899 Other long term (current) drug therapy; Z86.73 Personal history of transient ischemic attack (TIA), and cerebral infarction without residual deficits
CPT/HCPCS: 36415; 43752; 74176; 80053; 82150; 83605; 83690; 85025; 87040; 96374; 99284; 99285; J2270; J7030

== ENCOUNTER 2020-12-23 05:26 | Day surgery (SDC) | payer MEDICARE, OTHER ==
[~2020-12-23 05:26] MED LIST: Dextrose 5%-0.45% NaCl 1,000 ML IV SCH; Sodium Chloride 0.9% 10 ML Syringe FLUSH PRN
[2020-12-23] MEDS ORDERED: Midazolam 1 MG/ML 2 ML SDV IV ONE ×2 (05:27→06:34)
[2020-12-23] MEDS ORDERED: fentaNYL 100 MCG/2 ML SDV IV ONE ×3 (05:27→06:36)
[2020-12-23] MEDS ORDERED: fentaNYL 100 MCG/2 ML SDV ONE (06:13)
[2020-12-23] MEDS ORDERED: Midazolam 1 MG/ML 2 ML SDV ONE (06:13)
--- NOTE | 2020-12-23 08:22 | OR ---
DATE: 12/23/2020 PROCEDURES: Esophagogastroduodenoscopy and multiple pinch biopsies. INSTRUMENT USED: [id number]-[id number] Olympus video panendoscope. PREMEDICATIONS: Fentanyl 75 mcg intravenous, Versed 1 mg intravenous, nasal O2 cannula. The procedure was done under pulse oximetry, BP recording, and manager monitoring. INDICATION: The patient with previous small bowel obstruction with continuing dyspepsia and abdominal pain. Esophagogastroduodenoscopy is performed for detection of any active erosive lesions, Frazier esophagus and/or malignancy also under consideration, H pylori status to be determined, small bowel biopsies to be obtained if indicated, endoscopic hemostasis therapy if needed. The scope was passed with ease. Adequate visualization of the esophagus was made from proximal to distal areas. No upper esophageal lesions identified. No distal esophageal stricture. No uphill or downhill esophageal varices. No Yane- Yap tear. No evidence of erosive esophagitis by Jamul criteria. No esophageal polyp or tumor mass identified. Z-line was seen at around 39 cm distal to the oral verge, and was found to be deformed with diverticulum noted. No proximal gastric varices noted. Gastric fundus examination by retroflexion showed no polypoid lesions. Sliding hiatal hernia was noted. No gastric ulcer, malignant mass, or vascular ectasia identified. Couple of areas of patchy erythema were noted in the antrum. Duodenal bulb showed no ulcer. Visualized second part of the duodenum was unremarkable. Multiple pinch biopsies, 4 in number were taken from different areas of the second part of the duodenum and tissues were also obtained from the duodenal bulb at 9 and 12 o'clock positions and sent for any histopathologic evidence of celiac disease. Multiple pinch biopsies were taken from the gastric antrum and proximal body and sent for PyloriTek test for H pylori and histopathology. No bleeding was noted from any of the visualized areas at the completion of examination, and photographs were taken of the duodenal bulb, gastric antrum, fundus, and distal esophagus. IMPRESSION: 1. Patchy antral gastritis. 2. Sliding hiatal hernia. 3. Distal esophageal diverticulum. The patient tolerated the procedure well. [facility] /[id number]
[2020-12-23 09:23] VITALS: BP 140/60; PULSE 64
== END 2020-12-23 08:50 | disposition home or self-care (01) ==
LOC: DL.ENDO 05:26
PROVIDERS: ATTEND Internal Medicine Gastroenterology
DX: K29.50 Unspecified chronic gastritis without bleeding (principal); K44.9 Diaphragmatic hernia without obstruction or gangrene; Q39.6 Congenital diverticulum of esophagus; B96.81 Helicobacter pylori [H. pylori] as the cause of diseases classified elsewhere; E78.00 Pure hypercholesterolemia, unspecified; E53.8 Deficiency of other specified B group vitamins; E55.9 Vitamin D deficiency, unspecified; D64.9 Anemia, unspecified; D72.819 Decreased white blood cell count, unspecified; Z90.49 Acquired absence of other specified parts of digestive tract; Z88.1 Allergy status to other antibiotic agents; Z88.5 Allergy status to narcotic agent; Z87.891 Personal history of nicotine dependence; Z98.890 Other specified postprocedural states
CPT/HCPCS: 87077; 88305; 88342; J2250; J3010; J7042

== ENCOUNTER 2021-01-05 05:47 | Day surgery (SDC) | payer MEDICARE, OTHER ==
[~2021-01-05 05:47] MED LIST changes: -Dextrose 5%-0.45% NaCl 1,000 ML IV SCH; +Midazolam 1 MG/ML 2 ML SDV ONE; -Sodium Chloride 0.9% 10 ML Syringe FLUSH PRN; +fentaNYL 100 MCG/2 ML SDV ONE
[2021-01-05] MEDS ORDERED: fentaNYL 100 MCG/2 ML SDV IV ONE ×4 (05:48→07:45)
[2021-01-05] MEDS ORDERED: Midazolam 1 MG/ML 2 ML SDV IV ONE ×8 (05:48→07:53)
[2021-01-05] MEDS ORDERED: Dextrose 5%-0.45% NaCl 1,000 ML IV SCH (06:00)
[2021-01-05] MEDS ORDERED: Sodium Chloride 0.9% 10 ML Syringe FLUSH PRN (08:00)
--- NOTE | 2021-01-05 16:39 | OR ---
DATE: 01/05/2021 PROCEDURE: Total colonoscopy. INSTRUMENT USED: [id number]-H190DL Olympus video colonoscope. PREMEDICATIONS: Fentanyl 100 mcg intravenous, Versed 4 mg intravenous, nasal O2 cannula. The procedure was done under pulse oximetry, BP recording, and classroom monitor. INDICATION: The patient with iron-deficiency anemia. Colonoscopic examination is done for detection of any polypoid lesions and removal, endoscopic hemostasis therapy if needed. DESCRIPTION OF PROCEDURE: Initial rectal exam was unremarkable. Rigid anoscopy was unremarkable. The colonoscope was passed with ease. Patchy erythema was noted in the rectal area, photograph was taken. Few scattered diverticula were noted in the distal left colon along with deformity. The scope was passed with ease up to the ileocecal area. Photographs were taken of the normal-appearing cecum, identified by double-bulged ileocecal folds. No bleeding was noted from any of the visualized areas at the commencement of the examination. The bowel preparation was found to be adequate, Vanderwagen scale 2 in all the regions, total scope 6. No stricture. No vascular ectasia. No large isolated ulcerations seen. No evidence of diffuse inflammatory bowel disease in the form of friability, contact bleeding, or ulcerations. No polyp or tumor mass identified. Probing the proximal sides of folds and flexures using adequate distention and clearing up the stool material, withdrawal of the scope was made, cecum to rectum time over 6 minutes. No bleeding was noted from any of the visualized areas at the completion of examination. IMPRESSION: Radiation proctopathy. Diverticulosis. The patient tolerated the procedure well. [facility] /[id number] [facility]
[2021-01-06 11:08] VITALS: PULSE 76
[2021-01-06 11:09] VITALS: BP 117/58
== END 2021-01-05 10:06 | disposition home or self-care (01) ==
LOC: DL.ENDO 05:47
PROVIDERS: ATTEND Internal Medicine Gastroenterology
DX: K62.7 Radiation proctitis (principal); K57.30 Diverticulosis of large intestine without perforation or abscess without bleeding; D50.9 Iron deficiency anemia, unspecified; E53.8 Deficiency of other specified B group vitamins; Z86.010 Personal history of colon polyps; Z85.46 Personal history of malignant neoplasm of prostate
CPT/HCPCS: 45378; J2250; J3010; J7042

== ENCOUNTER 2021-04-16 07:36 | Emergency (ER) | payer MEDICARE, OTHER ==
[2021-04-16 08:38] VITALS: PULSE 88
[2021-04-16] MEDS ORDERED: Ketorolac 30 MG/ML SDV IM ONE (09:07)
[2021-04-16] MEDS ORDERED: Cyclobenzaprine 10 MG Tab PO ONE (09:07)
[2021-04-16] MEDS ORDERED: Lidocaine 5% Oint 35.44 GM Tube TOP ONE (09:07)
--- NOTE | 2021-04-16 09:07 | EDM.PDOC ---
ED HPI GENERAL MEDICAL PROBLEM - General Chief Complaint: Back Pain or Injury Stated Complaint: MUSCLE SPASMS IN BACK Time Seen by Provider: 04/16/21 09:06 Source of Information: Reports: Patient History Limitations: Reports: No Limitations - History of Present Illness INITIAL COMMENTS - FREE TEXT/NARRATIVE: 81 y/o M c/o R lower back pn since Monday. Pt states he was trying to move a flower pot in his yard and hurt his lower back. On he went to the chiropractor and got relief from spinal manipulation but hours later his pain came back and was more severe. The pain is constant and also has waves of inceasing pain the come and go. At rest the pain is 5/10 and during the waves of pain he rates it 10/10. He denies loss of bowel or bladder function, numbness or tingling anywhere, fever, cough, chills, leg pain, abd pn, cp, db, spine pain. Onset Date: 04/14/21 Onset Time: 12:00 Duration: Day(s): Location: Reports: Back Quality: Reports: Sharp Severity: Moderate Improves with: Reports: None Worsens with: Reports: None Lower Back Pain Score (Numeric/FACES): 4 - Related Data Allergies Allergy/AdvReac Type Severity Reaction Status Date / Time amoxicillin AdvReac Nausea and Verified 04/16/21 08:38 Vomiting hydrocodone AdvReac Indigestion Verified 04/16/21 08:38 tramadol AdvReac Hyperactivi Verified 04/16/21 08:38 ty Home Meds: Home Meds Rosuvastatin [Crestor] 20 mg PO BEDTIME 12/23/14 [History] Cyanocobalamin (Vitamin B-12) [Cyanocobalamin Injection] 1,000 mcg INJECT ASDIRECTED 03/13/15 [History] Aspirin [Ecotrin] 325 mg PO DAILY 02/04/17 [History] Acetaminophen 650 mg PO Q6HR PRN 08/24/18 [History] Ibuprofen 600 mg PO TID PRN 08/24/18 [History] Multivitamin-Min/Iron/FA/Vit K [Multi-Day Plus Minerals Tablet] 1 tab PO DAILY 08/24/18 [History] Omeprazole 20 mg PO DAILY 12/21/20 [History] Past Medical History HEENT History: Reports: Impaired Vision, Other (See Below) Other HEENT History: reading glasses. UPPER DENTURE PLATE AND LOWER PARTIAL PLATE Cardiovascular History: Reports: High Cholesterol, Other (See Below) Other Cardiovascular History: PERIPHERAL ARTERY DISEASE Respiratory History: Reports: None Gastrointestinal History: Reports: Colon Polyp, GERD Genitourinary History: Reports: Urinary Incontinence, Other (See Below) Other Genitourinary History: HX OF PROSTRATE CANCER Musculoskeletal History: Reports: Arthritis Neurological History: Reports: Headaches, Chronic, TIA Other Neuro History: HX OF [place] Psychiatric History: Reports: None Endocrine/Metabolic History: Reports: None Hematologic History: Reports: Anemia, B12 Deficiency, Other (See Below) Other Hematologic History: LEUKOPENIA Immunologic History: Reports: None Oncologic (Cancer) History: Reports: Prostate Dermatologic History: Reports: Cellulitis Other Dermatologic History: NEOPLASM OF UNCERTIAN BEHAVIOR; CELLULITUS OF THE R LEG (DENIES); SEBACOUS HYPERPLASIA - Infectious Disease History Infectious Disease History: Reports: Chicken Pox, Measles, Mumps Other Infectious Disease History: DENIES MUMPS 08-24-18 - Past Surgical History Head Surgeries/Procedures: Reports: None HEENT Surgical History: Reports: Cataract Surgery, Oral Surgery Cardiovascular Surgical History: Reports: None Respiratory Surgical History: Reports: None GI Surgical History: Reports: Appendectomy, Colonoscopy, EGD, Hernia Repair/Other, Polypectomy Male Surgical History: Reports: Prostatectomy Other Male Surgeries/Procedures: VASECTOMY Endocrine Surgical History: Reports: None Neurological Surgical History: Reports: None Musculoskeletal Surgical History: Reports: Knee Replacement, Shoulder Surgery Oncologic Surgical History: Reports: None Dermatological Surgical History: Reports: None Social & Family History - Family History Family Medical History: No Pertinent Family History - Tobacco Use Tobacco Use Status *Q: Former Tobacco User Used Tobacco, but Quit: Yes Month/Year Tobacco Last Used: 09/1994 - Caffeine Use Caffeine Use: Reports: Coffee Other Caffeine Use: COFFEE AVERAGE OF 2-3 CUPS DAILY - Recreational Drug Use Recreational Drug Use: No - Living Situation & Occupation Living situation: Reports: , with Family Occupation: Retired ED ROS GENERAL - Review of Systems Review Of Systems: Comprehensive ROS is negative, except as noted in HPI. ED EXAM,LOWER BACK PAIN/INJURY - Physical Exam Exam: See Below Exam Limited By: No Limitations General Appearance: Alert Throat/Mouth: Normal Inspection, Normal Lips, Normal Teeth, Normal Gums, Normal Oropharynx, Normal Voice, No Airway Compromise Head: Atraumatic, Normocephalic Neck: Normal Inspection, Supple, Non-Tender, Full Range of Motion Respiratory/Chest: No Respiratory Distress, Lungs Clear Cardiovascular: Normal Peripheral Pulses GI/Abdominal: Soft, Non-Tender (Male) Exam: Deferred Rectal (Males) Exam: Deferred Back Exam: Other (tenderness to palpation to R lower back to the R of the spine just above the pelvis) Extremities: Normal Inspection, Normal Range of Motion, Non-Tender, No Pedal Edema, Normal Capillary Refill Neurological: Alert, Normal Mood/Affect, Normal Dorsiflexion, CN II-XII Intact, Normal Plantar Flexion, Normal Gait, Normal Reflexes, No Motor/Sensory Deficits, Oriented x 3 Psychiatric: Normal Affect, Normal Mood Skin Exam: Warm, Dry, Intact Course - Vital Signs Last Recorded V/S: Last Vital Signs Temp 98.2 F 04/16/21 08:34 Pulse 88 04/16/21 08:34 Resp 20 04/16/21 08:34 BP 109/58 L 04/16/21 08:34 Pulse Ox 97 04/16/21 08:34 - Orders/Labs/Meds Orders: Active Orders 24 hr Category Date Time Status NG [Nasogastric Orogastric Tube Removal] [OM.PC] Stat Oth 04/16/21 09:21 Ordered Meds: Medications Discontinued Medications Generic Name Dose Route Start Last Admin Trade Name Freq PRN Reason Stop Dose Admin Cyclobenzaprine HCl 10 mg 04/16/21 09:07 Cyclobenzaprine 10 Mg Tab PO 04/16/21 09:08 ONETIME ONE Ketorolac Tromethamine 30 mg 04/16/21 09:07 04/16/21 09:20 Ketorolac 30 Mg/Ml Sdv IM 04/16/21 09:08 30 mg ONETIME ONE Administration Lidocaine HCl 30 gm 04/16/21 09:07 Lidocaine 5% Oint 35.44 Gm Tube TOP 04/16/21 09:08 ONETIME ONE - Re-Assessments/Exams Free Text/Narrative Re-Assessment/Exam: 04/16/21 10:14 On re-assessment the pts pain has improved. He is ready to go home. Departure - Departure Time of Disposition: 10:15 Disposition: Home, Self-Care 01 Condition: Fair Clinical Impression: Muscle spasm - Discharge Information *PRESCRIPTION DRUG MONITORING PROGRAM REVIEWED*: Not Applicable *COPY OF PRESCRIPTION DRUG MONITORING REPORT IN PATIENT HIMANSHU: Not Applicable Instructions: Muscle Cramps and Spasms, [id number] Forms: ED Department Discharge Additional Instructions: RX: Diclofenac RX: cyclobenzaprine Use tylenol or motrin for pain as needed. Ice and rest your back. If any new symptoms or concerns develop contact your primary care facility or return to the ER. Sepsis Event Note (ED) - Focused Exam Vital Signs: Vital Signs Temp Pulse Resp BP Pulse Ox 04/16/21 08:34 98.2 F 88 20 109/58 L 97
[2021-04-16 10:47] VITALS: BP 124/77
== END 2021-04-16 10:35 | disposition home or self-care (01) ==
LOC: DL.ED 07:36
DX: M62.830 Muscle spasm of back (principal); E78.00 Pure hypercholesterolemia, unspecified; K21.9 Gastro-esophageal reflux disease without esophagitis; Z79.82 Long term (current) use of aspirin; Z79.899 Other long term (current) drug therapy; Z88.0 Allergy status to penicillin; Z88.5 Allergy status to narcotic agent; Z86.73 Personal history of transient ischemic attack (TIA), and cerebral infarction without residual deficits; Z87.891 Personal history of nicotine dependence
CPT/HCPCS: 96372; 99283-25; A9270-GY; J1885

== ENCOUNTER 2021-04-17 06:32 | Observation (INO) | payer MEDICARE, OTHER ==
--- NOTE | 2021-04-17 06:48 | EDM.PDOC ---
"<Daniel Palacio - Last Filed: 04/17/21 09:21> ED HPI GENERAL MEDICAL PROBLEM - General Chief Complaint: Back Pain or Injury Stated Complaint: AMBULANCE Time Seen by Provider: 04/17/21 06:43 Source of Information: Reports: Patient, Old Records, Provider (Kavita BALLARD), RN, RN Notes Reviewed History Limitations: Reports: No Limitations - History of Present Illness INITIAL COMMENTS - FREE TEXT/NARRATIVE: I assumed care of the pt from Kavita BALLARD at 0700HR shift change with pt in CT for scan. Pt c/o only of low back pain. Initial note from nurses and provider states pt hit his head. Pt says his moved the bed and he tripped and fell over onto the carpeted floor onto his side and buttocks. He may have hit his head, but there is no redness, bruising, or any signs of injury to the head. Pt claims he had neck tightness with pain, and a headache yesterday evening and these symptoms all preceded the fall. He is frustrated at the attention to his head and neck, and states he is here for low back pain. Pt states the back pain is severe, but does not radiate. Onset: Today, Sudden Duration: Constant Location: Reports: Back Quality: Reports: Ache Severity: Severe Improves with: Reports: Immobilization, Rest Worsens with: Reports: Movement Associated Symptoms: Reports: No Other Symptoms Treatments DIRECTOR SYSTEMS: Reports: Other Medication(s) - Related Data Allergies Allergy/AdvReac Type Severity Reaction Status Date / Time amoxicillin AdvReac Nausea and Verified 04/17/21 10:45 Vomiting hydrocodone AdvReac Indigestion Verified 04/17/21 10:45 tramadol AdvReac Hyperactivi Verified 04/17/21 10:45 ty Home Meds: Home Meds Rosuvastatin [Crestor] 20 mg PO BEDTIME 12/23/14 [History] Cyanocobalamin (Vitamin B-12) [Cyanocobalamin Injection] 1,000 mcg INJECT ASDIRECTED 03/13/15 [History] Acetaminophen 650 mg PO Q6HR PRN 08/24/18 [History] Ibuprofen 600 mg PO TID PRN 08/24/18 [History] Multivitamin-Min/Iron/FA/Vit K [Multi-Day Plus Minerals Tablet] 1 tab PO DAILY 08/24/18 [History] Omeprazole 20 mg PO DAILY 12/21/20 [History] Aspirin 81 mg PO WITHBREAKFAST tab.chew 04/18/21 [Rx] Cyclobenzaprine [Flexeril] 5 mg PO Q8H PRN #14 tablet 04/18/21 [Rx] Social & Family History - Living Situation & Occupation Living situation: Reports: , with Spouse Occupation: Retired ED ROS GENERAL - Review of Systems Review Of Systems: Comprehensive ROS is negative, except as noted in HPI. ED EXAM,LOWER BACK PAIN/INJURY - Physical Exam Exam: See Below Exam Limited By: No Limitations General Appearance: Alert, WD/WN, No Apparent Distress (Uncomfortable, but in no acute distress) Eye Exam: Bilateral Eye: EOMI, Normal Inspection, PERRL Ears: Normal External Exam Nose: Normal Inspection, No Blood Throat/Mouth: Normal Inspection, Normal Lips, Normal Voice, No Airway Compromise Head: Atraumatic, Normocephalic Neck: Limited Range of Motion, Tender Lateral, Tender Midline, Other (C-spine cleared by CT (no C-collar)) Respiratory/Chest: No Respiratory Distress, Lungs Clear, Normal Breath Sounds, No Accessory Muscle Use, Chest Non-Tender Cardiovascular: Normal Peripheral Pulses, Regular Rate, Rhythm GI/Abdominal: Normal Bowel Sounds, Soft, Non-Tender (Male) Exam: Deferred Rectal (Males) Exam: Deferred Back Exam: Decreased Range of Motion, Muscle Spasm, Paraspinal Tenderness, Vertebral Tenderness (L1). No: CVA Tenderness (L), CVA Tenderness (R) Extremities: Normal Inspection, Normal Range of Motion, Non-Tender, No Pedal Edema, Normal Capillary Refill Neurological: Alert, Normal Mood/Affect, Normal Dorsiflexion, CN II-XII Intact, Normal Plantar Flexion, No Motor/Sensory Deficits, Oriented x 3 Psychiatric: Normal Affect, Normal Mood Skin Exam: Warm, Dry, Intact, Normal Color, No Rash Course - Radiology Interpretation Free Text/Narrative:: [facility] Final Radiology Report Call: [phone] assistance Online chat: [email or web address] Name: JIL HORAN Age: 81Years M Date: 04/17/2021 SSN: -- : 1940 Study: CT HEAD WO CONT Requesting Physician: KAVITA HOLDEN Images: [id number] Addl Studies: Provided Clinical History: fall, hit head, neck and back pain Contrast: Without Contrast Medium: Contrast Amount: Contrast Method: Page 1 of 2 PROCEDURE INFORMATION: Exam: CT Head Without Contrast Exam date and time: 04/17/2021 7:00 AM Age: 81 years old Clinical indication: Other: Fall, hit head, neck, lower back, pelvic pain, right side more than left; Additional info: Fall, hit head, neck and back pain TECHNIQUE: Imaging protocol: Computed tomography of the head without contrast. Radiation optimization: All CT scans at this facility use at least one of these dose optimization techniques: automated exposure control; mA and/or kV adjustment per patient size (includes targeted exams where dose is matched to clinical indication); or iterative reconstruction. COMPARISON: 1. MR Brain wo Cont 05/23/2018 9:15 AM 2. (No prior similar studies are available for comparison.) FINDINGS: There is no mass lesion or mass effect. There is diffuse central and cortical atrophy consistent with age. There is no CT evidence of acute parenchymal ischemia. There is no intra-axial or extra-axial hemorrhage. There is no evidence of acute obstructive sinonasal disease. Mastoid air cells are grossly normal. Visualized osseous structures are normal. Other findings: EXAM TYPE: CT of the BRAIN; DATE AND TIME: 04/17/2021 7:00 AM; CLINICAL INFORMATION:; Other: Fall, hit head, neck, lower back, pelvic pain, right side more than left; Additional info: Fall, hit head, neck and back pain IMPRESSION: 1. Central and cortical atrophy consistent with age. JIL HORAN | Final Radiology Report CONFIDENTIALITY STATEMENT This report is intended only for use by the referring physician, and only in accordance with law. If you received this in error, call [phone]. Page 2 of [address] evidence of acute infarction, intracranial hemorrhage or mass. Thank you for allowing us to participate in the care of your patient. Dictated and Authenticated by: Ney Goode MD 04/17/2021 7:44 AM Central Time ([place] & [place]) [facility] Final Radiology Report 24/7/365 Call: [phone] assistance Online chat: [email or web address] Name: JIL HORAN Age: 81Years M Date: 04/17/2021 SSN: -- : 1940 Study: CT CERVICAL SPINE WO CONT Requesting Physician: KAVITA HOLDEN Images: [id number] Addl Studies: Provided Clinical History: fall, hit head, neck and back pain Contrast: Without Contrast Medium: Contrast Amount: Contrast Method: Page 1 of 2 PROCEDURE INFORMATION: Exam: CT Cervical Spine Without Contrast Exam date and time: 04/17/2021 7:00 AM Age: 81 years old Clinical indication: Neck pain; Additional info: Fall, hit head, neck and back pain TECHNIQUE: Imaging protocol: Computed tomography images of the cervical spine without c ontrast. Radiation optimization: All CT scans at this facility use at least one of these dose optimization techniques: automated exposure control; mA and/or kV adjustment per patient size (includes targeted exams where dose is matched to clinical indication); or iterative reconstruction. COMPARISON: MR Brain wo Cont 05/23/2018 9:15 AM FINDINGS: Bones/joints: There is no acute fracture or dislocation. Facet joint arthropathy at C4-C5 and C5-C6 are noted. Discs/Spinal canal/Neural foramina: There are moderate discogenic and uncovertebral joint degenerative degenerative changes with loss of disc space height from C3 through C7. This is most severe at C3-C4 through C5-C6. There is no disc extrusion or cord compression. There is no disc extrusion. Lungs: Lung apices are normal. Soft tissues: Unremarkable. IMPRESSION: 1. Cervical spondylosis changes from C3 through C 7 as discussed. 2. No acute fracture or dislocation. JIL HORAN | Final Radiology Report CONFIDENTIALITY STATEMENT This report is intended only for use by the referring physician, and only in accordance with law. If you received this in error, call [phone]. Page 2 of 2 Thank you for allowing us to participate in the care of your patient. Dictated and Authenticated by: Ney Goode MD 04/17/2021 7:43 AM Central Time ([place] & [place]) [facility] Final Radiology Report Call: [phone] assistance Online chat: [email or web address] Name: JIL HORAN Age: 81Years M Date: 04/17/2021 SSN: -- : 1940 Study: CT LUMBAR SPINE WO CONT Requesting Physician: KAVITA HOLDEN Images: [id number] Addl Studies: Provided Clinical History: fall, hit head, neck and back pain Contrast: Without Contrast Medium: Contrast Amount: Contrast Method: Page 1 of 2 PROCEDURE INFORMATION: Exam: CT Lumbar Spine Without Contrast Exam date and time: 04/17/2021 7:00 AM Age: 81 years old Clinical indication: Patient HX: Low back pain, spasms, right side worse than left, fall; Additional info: Fall, hit head, neck and back pain TECHNIQUE: Imaging protocol: Computed tomography images of the lumbar spine without contrast. Radiation optimization: All CT scans at this facility use at least one of these dose optimization techniques: automated exposure control; mA and/or kV adjustment per patient size (includes targeted exams where dose is matched to clinical indication); or iterative reconstruction. COMPARISON: CT Abdomen Pelvis w Cont 12/15/2020 8:35 AM FINDINGS: Vertebrae: Fracture of the superior endplate of L1. There is loss of the normal vertebral body height by approximately 10%. Old Schmorl's node in the superior endplate of L4. Normal alignment. Discs/Spinal canal/Neural foramina: The disc spaces are maintained. Associated marginal endplate osteophytes. Soft tissues: Unremarkable. IMPRESSION: 1. Acute superior endplate fracture of L1. 2. Degenerative disc disease. Thank you for allowing us to participate in the care of your patient. JIL HORAN | Final Radiology Report CONFIDENTIALITY STATEMENT This report is intended only for use by the referring physician, and only in accordance with law. If you received this in error, call [phone]. Page 2 of 2 Dictated and Authenticated by: Jose Alejandro Huitron MD 04/17/2021 7:46 AM Central Time ([place] & [facility] Final Radiology Report Call: [phone] assistance Online chat: [email or web address] Name: JIL HORAN Age: 81Years M Date: 04/17/2021 SSN: -- : 1940 Study: CT PELVIS WO CONT Requesting Physician: KAVITA HOLDEN Images: [id number] Addl Studies: Provided Clinical History: fall, hit head, neck and back pain Contrast: Without Contrast Medium: Contrast Amount: Contrast Method: Page 1 of 2 PROCEDURE INFORMATION: Exam: CT Pelvis Without Contrast; Skeletal Exam date and time: 04/17/2021 7:00 AM Age: 81 years old Clinical indication: Hip pain and pelvic pain; Bilateral; Patient HX: Fall, right sided pain worse than left, low back, pelvic pain; Additional info: Fall, hit head, neck and back pain TECHNIQUE: Imaging protocol: Computed tomography images of the pelvis without contrast. Exam focused on the skeletal structures. Radiation optimization: All CT scans at this facility use at least one of these dose optimization techniques: automated exposure control; mA and/or kV adjustment per patient size (includes targeted exams where dose is matched to clinical indication); or iterative reconstruction. COMPARISON: CT Abdomen Pelvis w Cont 12/15/2020 8:35 AM FINDINGS: Reproductive: The prostate gland is surgically absent. Bones/joints: Mild narrowing of both hip joints. Mild degenerative osteophyt osis. No fractures or dislocations. Soft tissues: Unremarkable. IMPRESSION: 1. No fractures or dislocations. 2. 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 Thank you for allowing us to participate in the care of your patient. Dictated and Authenticated by: Jose Alejandro Huitron MD JIL HORAN | Final Radiology Report CONFIDENTIALITY STATEMENT This report is intended only for use by the referring physician, and only in accordance with law. If you received this in error, call [phone]. Page 2 of 2 04/17/2021 7:51 AM Central Time ([place] & [place]) Departure - Departure Time of Disposition: 09:21 (admitted to Dr. Bella) Disposition: Refer to Observation Condition: Fair Clinical Impression: Compression fracture of L1 lumbar vertebra Qualifiers: Encounter type: initial encounter Qualified Code(s): S32.010A - Wedge compr ession fracture of first lumbar vertebra, initial encounter for closed fracture - Discharge Information *PRESCRIPTION DRUG MONITORING PROGRAM REVIEWED*: No *COPY OF PRESCRIPTION DRUG MONITORING REPORT IN PATIENT HIMANSHU: No <Kavita Holden - Last Filed: 04/21/21 01:13> ED HPI GENERAL MEDICAL PROBLEM - General Source of Information: Reports: Patient, EMS, RN History Limitations: Reports: No Limitations - History of Present Illness INITIAL COMMENTS - FREE TEXT/NARRATIVE: ED via [facility] with c/o severe back spasm. Reports seen in ED yesterday with same. Tonight returning from bathroom and missed getting back into bed, fell, hit head on carpeted floor. Now c/o headache, neck pain, and low back pain with spasm. Did not lose consciousness. No loss of bowel or bladder control. Last took flexeril at 4am. Notes decreased appetite and not eating or drinking much yesterday. Right Upper Back Pain Score (Numeric/FACES): 5 Past Medical History HEENT History: Reports: Impaired Vision, Other (See Below) Other HEENT History: reading glasses. UPPER DENTURE PLATE AND LOWER PARTIAL [place] TE Cardiovascular History: Reports: High Cholesterol, Other (See Below) Other Cardiovascular History: PERIPHERAL ARTERY DISEASE Respiratory History: Reports: None Gastrointestinal History: Reports: Colon Polyp, GERD Genitourinary History: Reports: Urinary Incontinence, Other (See Below) Other Genitourinary History: HX OF PROSTRATE CANCER Musculoskeletal History: Reports: Arthritis Neurological History: Reports: Headaches, Chronic, TIA Other Neuro History: HX OF HEM[place]A Psychiatric History: Reports: None Endocrine/Metabolic History: Reports: None Hematologic History: Reports: Anemia, B12 Deficiency, Other (See Below) Other Hematologic History: LEUKOPENIA Immunologic History: Reports: None Oncologic (Cancer) History: Reports: Prostate Dermatologic History: Reports: Cellulitis Other Dermatologic History: NEOPLASM OF UNCERTIAN BEHAVIOR; CELLULITUS OF THE R LEG (DENIES); SEBACOUS HYPERPLASIA - Infectious Disease History Infectious Disease History: Reports: Chicken Pox, Measles, Mumps Other Infectious Disease History: DENIES MUMPS 08-24-18 - Past Surgical History Head Surgeries/Procedures: Reports: None HEENT Surgical History: Reports: Cataract Surgery, Oral Surgery Cardiovascular Surgical History: Reports: None Respiratory Surgical History: Reports: None GI Surgical History: Reports: Appendectomy, Colonoscopy, EGD, Hernia Repair/Other, Polypectomy Male Surgical History: Reports: Prostatectomy Other Male Surgeries/Procedures: VASECTOMY Endocrine Surgical History: Reports: None Neurological Surgical History: Reports: None Musculoskeletal Surgical History: Reports: Knee Replacement, Shoulder Surgery Oncologic Surgical History: Reports: None Dermatological Surgical History: Reports: None Social & Family History - Family History Family Medical History: No Pertinent Family History - Caffeine Use Caffeine Use: Reports: Coffee Other Caffeine Use: COFFEE AVERAGE OF 2-3 CUPS DAILY - Living Situation & Occupation Living situation: Reports: , with Family Occupation: Retired ED ROS GENERAL - Review of Systems Review Of Systems: Comprehensive ROS is negative, except as noted in HPI. ED EXAM,LOWER BACK PAIN/INJURY - Physical Exam Exam: See Below Exam Limited By: No Limitations General Appearance: Alert, Mild Distress (at rest), Moderate Distress (with movement) Eye Exam: Bilateral Eye: EOMI Ears: Normal External Exam, Hearing Loss Nose: Normal Inspection Throat/Mouth: Normal Inspection Head: Atraumatic, Normocephalic Neck: Tender Midline Respiratory/Chest: No Respiratory Distress, Lungs Clear, Normal Breath Sounds Cardiovascular: Normal Peripheral Pulses, Regular Rate, Rhythm GI/Abdominal: Normal Bowel Sounds, Soft Extremities: Normal Inspection Neurological: Alert, Normal Mood/Affect, Oriented x 3 Psychiatric: Anxious Skin Exam: Warm, Dry, Intact. No: Ecchymosis Course - Vital Signs Last Recorded V/S: Last Vital Signs Temp 98.6 F 04/18/21 07:43 Pulse 80 04/18/21 07:43 Resp 20 04/18/21 07:43 BP 116/52 L 04/18/21 07:43 Pulse Ox 96 04/18/21 07:43 - Orders/Labs/Meds Labs: Laboratory Tests 04/17/21 04/17/21 04/17/21 Range/Units 07:00 07:00 07:00 WBC 4.1 L (5.0-10.0) 10^3/uL RBC 2.98 L (4.6-6.2) 10^6/uL Hgb 9.5 L (14.0-18.0) g/dL Hct 29.1 L (40.0-54.0) % MCV 97.7 (80-100) fL MCH 31.9 (27.0-34.0) pg MCHC 32.6 L (33.0-35.0) g/dL Plt Count 132 L (150-450) 10^3/uL Neut % (Auto) 63.3 (42.2-75.2) % Lymph % (Auto) 7.8 L (20.5-50.1) % [place] % (Auto) 22.5 H (2-8) % Eos % (Auto) 2.0 (1.0-3.0) % Baso % (Auto) 4.4 H (0.0-1.0) % Add Manual Diff Yes Neutrophils % (Manual) 69 (42-75) % Band Neutrophils % 11 % Lymphocytes % (Manual) 7 L (20-50) % Atypical Lymphs % 0 % Monocytes % (Manual) 10 H (2-8) % Eosinophils % (Manual) 3 (1-3) % PT 10.4 (9.0-12.0) SEC INR 1.0 (0.9-1.2) Sodium 138 (136-145) mmol/L Potassium 4.6 (3.5-5.1) mmol/L Chloride 103 (98-107) mmol/L Carbon Dioxide 25 (21-32) mmol/L Anion Gap 14.6 H (7-13) mEq/L BUN 24 H (7-18) mg/dL Creatinine 1.32 H (0.70-1.30) mg/dL Est Cr Clr Drug Dosing TNP Estimated GFR (MDRD) 52 BUN/Creatinine Ratio 18.2 (No establ ref range) Glucose 98 (70-99) mg/dL Calcium 8.6 (8.5-10.1) mg/dL Total Bilirubin 0.4 (0.2-1.0) mg/dL AST 20 (15-37) U/L ALT 22 (16-63) U/L Alkaline Phosphatase 37 L (46-116) U/L Total Protein 5.5 L (6.4-8.2) g/dL Albumin 2.9 L (3.4-5.0) g/dL Globulin 2.6 Albumin/Globulin Ratio 1.12 Urine Color (YELLOW) Urine Appearance (CLEAR) Urine pH (5.0-9.0) Ur Specific [place] (1.005-1.030) Urine Protein (NEGATIVE) Urine Glucose (UA) (NEGATIVE) Urine Ketones (NEGATIVE) Urine Occult Blood (NEGATIVE) Urine Nitrite (NEGATIVE) Urine Bilirubin (NEGATIVE) Urine Urobilinogen (0.2-1.0) mg/dL Ur Leukocyte Esterase (NEGATIVE) SARS-CoV-2 RNA (RALPH) (NEGATIVE) 04/17/21 04/17/21 Range/Units 08:35 08:38 WBC (5.0-10.0) 10^3/uL RBC (4.6-6.2) 10^6/uL Hgb (14.0-18.0) g/dL Hct (40.0-54.0) % MCV (80-100) fL MCH (27.0-34.0) pg MCHC (33.0-35.0) g/dL Plt Count (150-450) 10^3/uL Neut % (Auto) (42.2-75.2) % Lymph % (Auto) (20.5-50.1) % [place] % (Auto) (2-8) % Eos % (Auto) (1.0-3.0) % Baso % (Auto) (0.0-1.0) % Add Manual Diff Neutrophils % (Manual) (42-75) % Band Neutrophils % % Lymphocytes % (Manual) (20-50) % Atypical Lymphs % % Monocytes % (Manual) (2-8) % Eosinophils % (Manual) (1-3) % PT (9.0-12.0) SEC INR (0.9-1.2) Sodium (136-145) mmol/L Potassium (3.5-5.1) mmol/L Chloride (98-107) mmol/L Carbon Dioxide (21-32) mmol/L Anion Gap (7-13) mEq/L BUN (7-18) mg/dL Creatinine (0.70-1.30) mg/dL Est Cr Clr Drug Dosing Estimated GFR (MDRD) BUN/Creatinine Ratio (No establ ref range) Glucose (70-99) mg/dL Calcium (8.5-10.1) mg/dL Total Bilirubin (0.2-1.0) mg/dL AST (15-37) U/L ALT (16-63) U/L Alkaline Phosphatase (46-116) U/L Total Protein (6.4-8.2) g/dL Albumin (3.4-5.0) g/dL Globulin Albumin/Globulin Ratio Urine Color Dark yellow (YELLOW) Urine Appearance Clear (CLEAR) Urine pH 6.5 (5.0-9.0) Ur Specific [place] 1.025 (1.005-1.030) Urine Protein Negative (NEGATIVE) Urine Glucose (UA) Negative (NEGATIVE) Urine Ketones Negative (NEGATIVE) Urine Occult Blood Negative (NEGATIVE) Urine Nitrite Negative (NEGATIVE) Urine Bilirubin Negative (NEGATIVE) Urine Urobilinogen 0.2 (0.2-1.0) mg/dL Ur Leukocyte Esterase Negative (NEGATIVE) SARS-CoV-2 RNA (RALPH) Negative (NEGATIVE) Meds: Medications Discontinued Medications Generic Name Dose Route Start Last Admin Trade Name Freq PRN Reason Stop Dose Admin Acetaminophen 650 mg 04/17/21 10:30 04/18/21 10:40 Acetaminophen 325 Mg Tab PO 650 mg Q6H INDU Administration Acetaminophen 650 mg 04/17/21 11:21 Acetaminophen 325 Mg Tab PO Q6HR PRN Pain Aspirin 81 mg 04/18/21 08:00 04/18/21 08:08 Aspirin 81 Mg Tab.Chew PO 81 mg WITHBREAKFAST INDU Administration Cyclobenzaprine HCl 5 mg 04/18/21 07:50 04/18/21 08:08 Cyclobenzaprine 10 Mg Tab PO 5 mg Q8H PRN Administration Pain Fentanyl 25 mcg 04/17/21 06:54 04/17/21 07:09 Fentanyl 100 Mcg/2 Ml Sdv IVPUSH 04/17/21 06:55 25 mcg ONETIME ONE Administration Fentanyl 25 mcg 04/17/21 08:06 04/17/21 11:32 Fentanyl 100 Mcg/2 Ml Sdv IVPUSH 04/17/21 08:07 Not Given ONETIME ONE Fentanyl 25 mcg 04/17/21 09:11 04/17/21 09:25 Fentanyl 100 Mcg/2 Ml Sdv IVPUSH 04/17/21 09:12 25 mcg ONETIME ONE Administration Hydromorphone HCl 0.25 mg 04/17/21 10:21 Hydromorphone 1 Mg/Ml Syringe IVPUSH Q4H PRN Pain (severe 7-10) Sodium Chloride 500 mls @ 999 mls/hr 04/17/21 08:15 04/17/21 08:10 Normal Saline IV 999 mls/hr .BOLUS INDU Administration Ibuprofen 600 mg 04/17/21 11:21 Ibuprofen 600 Mg Tab PO TID PRN Pain Lidocaine 700 mg 04/17/21 12:30 04/18/21 09:10 Lidocaine 5% 700 Mg Patch TRDERM 700 mg DAILY INDU Administration Miscellaneous Information 1 ea 04/17/21 21:00 04/17/21 21:35 Remove Patch TRDERM 1 ea BEDTIME INDU Administration Omeprazole 20 mg 04/18/21 06:00 04/18/21 05:02 Omeprazole 20 Mg Cap.Cr PO Not Given ACBREAKFAST INDU Ondansetron HCl 4 mg 04/17/21 06:54 04/17/21 07:07 Ondansetron 4 Mg/2 Ml Sdv IVPUSH 04/17/21 06:55 4 mg ONETIME ONE Administration Ondansetron HCl 4 mg 04/17/21 10:21 Ondansetron 4 Mg Tab.Dis PO Q4H PRN nausea, able to take PO Oxycodone HCl 5 mg 04/17/21 10:21 Oxycodone 5 Mg Tab PO Q6H PRN Pain (moderate 4-6) Polyethylene Glycol 17 gm 04/17/21 10:21 Polyethylene Glycol 3350 Powder 17 Gm Packet PO DAILY PRN Constipation Rosuvastatin Calcium 20 mg 04/17/21 21:00 04/17/21 21:30 Rosuvastatin 10 Mg Tab PO 20 mg BEDTIME INDU Administration Sodium Chloride 10 ml 04/17/21 15:28 Sodium Chloride 0.9% 10 Ml Syringe FLUSH ASDIRECTED PRN Keep Vein Open - Re-Assessments/Exams Free Text/Narrative Re-Assessment/Exam: 04/17/21 06:53 Tx of care to Dr Palacio with shift change Sepsis Event Note (ED) - Evaluation Sepsis Screening Result: No Definite Risk"
[2021-04-17] MEDS ORDERED: Ondansetron 4 MG/2 ML SDV IVPUSH ONE (06:54)
[2021-04-17] MEDS ORDERED: fentaNYL 100 MCG/2 ML SDV IVPUSH ONE ×3 (06:54→09:11)
[2021-04-17 07:25] LABS: ANION GAP 14.6 mEq/L (7-13); CHLORIDE,CL 103 mmol/L (98-107); SODIUM,NA 138 mmol/L (136-145)
--- NOTE | 2021-04-17 07:43 | CT ---
PROCEDURE INFORMATION: Exam: CT Cervical Spine Without Contrast Exam date and time: 04/17/2021 7:00 AM Age: 81 years old Clinical indication: Neck pain; Additional info: Fall, hit head, neck and back pain TECHNIQUE: Imaging protocol: Computed tomography images of the cervical spine without contrast. Radiation optimization: All CT scans at this facility use at least one of these dose optimization techniques: automated exposure control; mA and/or kV adjustment per patient size (includes targeted exams where dose is matched to clinical indication); or iterative reconstruction. COMPARISON: MR Brain wo Cont 05/23/2018 9:15 AM FINDINGS: Bones/joints: There is no acute fracture or dislocation. Facet joint arthropathy at C4-C5 and C5-C6 are noted. Discs/Spinal canal/Neural foramina: There are moderate discogenic and uncovertebral joint degenerative degenerative changes with loss of disc space height from C3 through C7. This is most severe at C3-C4 through C5-C6. There is no disc extrusion or cord compression. There is no disc extrusion. Lungs: Lung apices are normal. Soft tissues: Unremarkable. IMPRESSION: 1. Cervical spondylosis changes from C3 through C 7 as discussed. 2. No acute fracture or dislocation.
--- NOTE | 2021-04-17 07:44 | CT ---
PROCEDURE INFORMATION: Exam: CT Head Without Contrast Exam date and time: 04/17/2021 7:00 AM Age: 81 years old Clinical indication: Other: Fall, hit head, neck, lower back, pelvic pain, right side more than left; Additional info: Fall, hit head, neck and back pain TECHNIQUE: Imaging protocol: Computed tomography of the head without contrast. Radiation optimization: All CT scans at this facility use at least one of these dose optimization techniques: automated exposure control; mA and/or kV adjustment per patient size (includes targeted exams where dose is matched to clinical indication); or iterative reconstruction. COMPARISON: 1. MR Brain wo Cont 05/23/2018 9:15 AM 2. (No prior similar studies are available for comparison.) FINDINGS: There is no mass lesion or mass effect. There is diffuse central and cortical atrophy consistent with age. There is no CT evidence of acute parenchymal ischemia. There is no intra-axial or extra-axial hemorrhage. There is no evidence of acute obstructive sinonasal disease. Mastoid air cells are grossly normal. Visualized osseous structures are normal. Other findings: EXAM TYPE: CT of the BRAIN; DATE AND TIME: 04/17/2021 7:00 AM; CLINICAL INFORMATION:; Other: Fall, hit head, neck, lower back, pelvic pain, right side more than left; Additional info: Fall, hit head, neck and back pain IMPRESSION: 1. Central and cortical atrophy consistent with age. 2. No CT evidence of acute infarction, intracranial hemorrhage or mass.
--- NOTE | 2021-04-17 07:47 | CT ---
PROCEDURE INFORMATION: Exam: CT Lumbar Spine Without Contrast Exam date and time: 04/17/2021 7:00 AM Age: 81 years old Clinical indication: Patient HX: Low back pain, spasms, right side worse than left, fall; Additional info: Fall, hit head, neck and back pain TECHNIQUE: Imaging protocol: Computed tomography images of the lumbar spine without contrast. Radiation optimization: All CT scans at this facility use at least one of these dose optimization techniques: automated exposure control; mA and/or kV adjustment per patient size (includes targeted exams where dose is matched to clinical indication); or iterative reconstruction. COMPARISON: CT Abdomen Pelvis w Cont 12/15/2020 8:35 AM FINDINGS: Vertebrae: Fracture of the superior endplate of L1. There is loss of the normal vertebral body height by approximately 10%. Old Schmorl's node in the superior endplate of L4. Normal alignment. Discs/Spinal canal/Neural foramina: The disc spaces are maintained. Associated marginal endplate osteophytes. Soft tissues: Unremarkable. IMPRESSION: 1. Acute superior endplate fracture of L1. 2. Degenerative disc disease.
--- NOTE | 2021-04-17 07:51 | CT ---
PROCEDURE INFORMATION: Exam: CT Pelvis Without Contrast; Skeletal Exam date and time: 04/17/2021 7:00 AM Age: 81 years old Clinical indication: Hip pain and pelvic pain; Bilateral; Patient HX: Fall, right sided pain worse than left, low back, pelvic pain; Additional info: Fall, hit head, neck and back pain TECHNIQUE: Imaging protocol: Computed tomography images of the pelvis without contrast. Exam focused on the skeletal structures. Radiation optimization: All CT scans at this facility use at least one of these dose optimization techniques: automated exposure control; mA and/or kV adjustment per patient size (includes targeted exams where dose is matched to clinical indication); or iterative reconstruction. COMPARISON: CT Abdomen Pelvis w Cont 12/15/2020 8:35 AM FINDINGS: Reproductive: The prostate gland is surgically absent. Bones/joints: Mild narrowing of both hip joints. Mild degenerative osteophytosis. No fractures or dislocations. Soft tissues: Unremarkable. IMPRESSION: 1. No fractures or dislocations. 2. 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
[2021-04-17] MEDS ORDERED: Sodium Chloride 0.9% 500 ML IV SCH (08:15)
[2021-04-17] MEDS ORDERED: HYDROmorphone 1 MG/ML Syringe IVPUSH PRN (10:21)
[2021-04-17] MEDS ORDERED: oxyCODONE 5 MG Tab PO PRN (10:21)
[2021-04-17] MEDS ORDERED: Polyethylene Glycol 3350 Powder 17 GM Packet PO PRN (10:21)
[2021-04-17] MEDS ORDERED: Ondansetron 4 MG Tab.DIS PO PRN (10:21)
--- NOTE | 2021-04-17 11:09 | PCM.HP ---
H&P History of Present Illness - General Date of Service: 04/17/21 Admit Problem/Dx: Admission Diagnosis/Problem Admission Diagnosis/Problem Compression fracture of first lumbar vertebra - History of Present Illness Initial Comments - Free Text/Narative: Patient is an 81-year-old male with a past medical history of hyperlipidemia, iron deficiency anemia who presented after mechanical fall with back pain was found to have a L1 compression fracture. Patient states that several days ago he was lifting quite a bit of heavy material and noticed a sudden onset pain in his lower back. Patient states that this pain persisted but was tolerable after he visited the urgent care. Patient states that last night 04-16-21 he fell after he had gotten out of bed to take his dog out. Patient states that he had a sudden onset of significant back pain and had his call EMS for further transfer. In the emergency department patient was hemodynamically stable. Laboratory studies were within normal ones with exception of hemoglobin of 9.5 which is similar to his baseline, creatinine of 1.32. CT abdomen pelvis had no acute findings, CT head, cervical spine showed no acute findings. CT lumbar spine showed a L1 superior endplate fracture. Patient was requiring IV pain medications and was unable to ambulate thus was admitted for further evaluation. Upon discussion with patient stated the above story. Patient denies any numbness, weakness in his lower extremities. Patient says he is just limited by pain. Patient states he had a mechanical fall and denies any concerning findings for syncope. States that he has a history of iron deficiency anemia and is in taking iron supplementation but stopped this was due to constipation. States that he is been working with his primary care provider to try to find the reason for his iron deficiency anemia. States that he has been getting iron infusions lately and he did have a colonoscopy 3 months ago with no concerning findings. Patient states he lives at his home with his and his dog and is fairly active. Patient states his pain is currently well controlled after IV narcotic medications. Right Upper Back Pain Score (Numeric/FACES): 5 - Related Data Allergies/Adverse Reactions: Allergies Allergy/AdvReac Type Severity Reaction Status Date / Time amoxicillin AdvReac Nausea and Verified 04/17/21 10:45 Vomiting hydrocodone AdvReac Indigestion Verified 04/17/21 10:45 tramadol AdvReac Hyperactivi Verified 04/17/21 10:45 ty Home Medications: Home Meds Rosuvastatin [Crestor] 20 mg PO BEDTIME 12/23/14 [History] Cyanocobalamin (Vitamin B-12) [Cyanocobalamin Injection] 1,000 mcg INJECT ASDIRECTED 03/13/15 [History] Aspirin [Ecotrin] 325 mg PO DAILY 02/04/17 [History] Acetaminophen 650 mg PO Q6HR PRN 08/24/18 [History] Ibuprofen 600 mg PO TID PRN 08/24/18 [History] Multivitamin-Min/Iron/FA/Vit K [Multi-Day Plus Minerals Tablet] 1 tab PO DAILY 08/24/18 [History] Omeprazole 20 mg PO DAILY 12/21/20 [History] Past Medical History HEENT History: Reports: Impaired Vision, Other (See Below) Other HEENT History: reading glasses. UPPER DENTURE PLATE AND LOWER PARTIAL PLATE Cardiovascular History: Reports: High Cholesterol, Other (See Below) Other Cardiovascular History: PERIPHERAL ARTERY DISEASE Respiratory History: Reports: None Gastrointestinal History: Reports: Colon Polyp, GERD Genitourinary History: Reports: Urinary Incontinence, Other (See Below) Other Genitourinary History: HX OF PROSTRATE CANCER Musculoskeletal History: Reports: Arthritis Neurological History: Reports: Headaches, Chronic, TIA Other Neuro History: HX OF [place]EM[place] Psychiatric History: Reports: None Endocrine/Metabolic History: Reports: None Hematologic History: Reports: Anemia, B12 Deficiency, Other (See Below) Other Hematologic History: LEUKOPENIA Immunologic History: Reports: None Oncologic (Cancer) History: Reports: Prostate Dermatologic History: Reports: Cellulitis Other Dermatologic History: NEOPLASM OF UNCERTIAN BEHAVIOR; CELLULITUS OF THE R LEG (DENIES); SEBACOUS HYPERPLASIA - Infectious Disease History Infectious Disease History: Reports: Chicken Pox, Measles, Mumps Other Infectious Disease History: DENIES MUMPS 08-24-18 - Past Surgical History Head Surgeries/Procedures: Reports: None HEENT Surgical History: Reports: Cataract Surgery, Oral Surgery Cardiovascular Surgical History: Reports: None Respiratory Surgical History: Reports: None GI Surgical History: Reports: Appendectomy, Colonoscopy, EGD, Hernia Repair/Other, Polypectomy Male Surgical History: Reports: Prostatectomy Other Male Surgeries/Procedures: VASECTOMY Endocrine Surgical History: Reports: None Neurological Surgical History: Reports: None Musculoskeletal Surgical History: Reports: Knee Replacement, Shoulder Surgery Oncologic Surgical History: Reports: None Dermatological Surgical History: Reports: None Social & Family History - Family History Family Medical History: No Pertinent Family History - Tobacco Use Tobacco Use Status *Q: Never Tobacco User - Caffeine Use Caffeine Use: Reports: Coffee Other Caffeine Use: COFFEE AVERAGE OF 2-3 CUPS DAILY - Recreational Drug Use Recreational Drug Use: No - Living Situation & Occupation Living situation: Reports: , with Spouse Occupation: Retired H&P Review of Systems - Review of Systems: Review Of Systems: Comprehensive ROS is negative, except as noted in HPI. Exam - Exam Exam: See Below - Vital Signs Vital Signs: Last Vital Signs Temp 96.6 F L 04/17/21 10:14 Pulse 83 04/17/21 10:14 Resp 18 04/17/21 10:14 BP 144/57 H 04/17/21 10:14 Pulse Ox 99 04/17/21 10:14 Weight: 164 lb 14.4 oz - Exam General: Alert, Oriented, Cooperative HEENT: Conjunctiva Clear, EACs Clear Neck: Supple, Trachea Midline, Full Range of Motion Lungs: Clear to Auscultation, Normal Respiratory Effort Cardiovascular: Regular Rate, Regular Rhythm GI/Abdominal Exam: Normal Bowel Sounds, Soft, Non-Tender Back Exam: Decreased Range of Motion, Muscle Spasm, Vertebral Tenderness (tenderness at L1) Extremities: Normal Inspection, Normal Range of Motion Skin: Warm, Dry, Intact Neurological: Cranial Nerves Intact, Reflexes Equal Bilateral, Strength Equal Bilateral Neuro Extensive - Mental Status: Alert, Oriented x3, Normal Mood/Affect Neuro Extensive - Motor, Sensory, Reflexes: CN II-XII Intact, Normal Reflexes Psychiatric: Alert, Normal Affect - Patient Data Lab Results Last 24 hrs: Laboratory Results - last 24 hr 04/17/21 04/17/21 04/17/21 Range/Units 07:00 07:00 07:00 WBC 4.1 L (5.0-10.0) 10^3/uL RBC 2.98 L (4.6-6.2) 10^6/uL Hgb 9.5 L (14.0-18.0) g/dL Hct 29.1 L (40.0-54.0) % MCV 97.7 (80-100) fL MCH 31.9 (27.0-34.0) pg MCHC 32.6 L (33.0-35.0) g/dL Plt Count 132 L (150-450) 10^3/uL Neut % (Auto) 63.3 (42.2-75.2) % Lymph % (Auto) 7.8 L (20.5-50.1) % [place] % (Auto) 22.5 H (2-8) % Eos % (Auto) 2.0 (1.0-3.0) % Baso % (Auto) 4.4 H (0.0-1.0) % Add Manual Diff Yes Neutrophils % (Manual) 69 (42-75) % Band Neutrophils % 11 % Lymphocytes % (Manual) 7 L (20-50) % Atypical Lymphs % 0 % Monocytes % (Manual) 10 H (2-8) % Eosinophils % (Manual) 3 (1-3) % PT 10.4 (9.0-12.0) SEC INR 1.0 (0.9-1.2) Sodium 138 (136-145) mmol/L Potassium 4.6 (3.5-5.1) mmol/L Chloride 103 (98-107) mmol/L Carbon Dioxide 25 (21-32) mmol/L Anion Gap 14.6 H (7-13) mEq/L BUN 24 H (7-18) mg/dL Creatinine 1.32 H (0.70-1.30) mg/dL Est Cr Clr Drug Dosing TNP Estimated GFR (MDRD) 52 BUN/Creatinine Ratio 18.2 (No establ ref range) Glucose 98 (70-99) mg/dL Calcium 8.6 (8.5-10.1) mg/dL Total Bilirubin 0.4 (0.2-1.0) mg/dL AST 20 (15-37) U/L ALT 22 (16-63) U/L Alkaline Phosphatase 37 L (46-116) U/L Total Protein 5.5 L (6.4-8.2) g/dL Albumin 2.9 L (3.4-5.0) g/dL Globulin 2.6 Albumin/Globulin Ratio 1.12 Urine Color (YELLOW) Urine Appearance (CLEAR) Urine pH (5.0-9.0) Ur Specific [place] (1.005-1.030) Urine Protein (NEGATIVE) Urine Glucose (UA) (NEGATIVE) Urine Ketones (NEGATIVE) Urine Occult Blood (NEGATIVE) Urine Nitrite (NEGATIVE) Urine Bilirubin (NEGATIVE) Urine Urobilinogen (0.2-1.0) mg/dL Ur Leukocyte Esterase (NEGATIVE) SARS-CoV-2 RNA (RALPH) (NEGATIVE) 04/17/21 04/17/21 Range/Units 08:35 08:38 WBC (5.0-10.0) 10^3/uL RBC (4.6-6.2) 10^6/uL Hgb (14.0-18.0) g/dL Hct (40.0-54.0) % MCV (80-100) fL MCH (27.0-34.0) pg MCHC (33.0-35.0) g/dL Plt Count (150-450) 10^3/uL Neut % (Auto) (42.2-75.2) % Lymph % (Auto) (20.5-50.1) % [place] % (Auto) (2-8) % Eos % (Auto) (1.0-3.0) % Baso % (Auto) (0.0-1.0) % Add Manual Diff Neutrophils % (Manual) (42-75) % Band Neutrophils % % Lymphocytes % (Manual) (20-50) % Atypical Lymphs % % Monocytes % (Manual) (2-8) % Eosinophils % (Manual) (1-3) % PT (9.0-12.0) SEC INR (0.9-1.2) Sodium (136-145) mmol/L Potassium (3.5-5.1) mmol/L Chloride (98-107) mmol/L Carbon Dioxide (21-32) mmol/L Anion Gap (7-13) mEq/L BUN (7-18) mg/dL Creatinine (0.70-1.30) mg/dL Est Cr Clr Drug Dosing Estimated GFR (MDRD) BUN/Creatinine Ratio (No establ ref range) Glucose (70-99) mg/dL Calcium (8.5-10.1) mg/dL Total Bilirubin (0.2-1.0) mg/dL AST (15-37) U/L ALT (16-63) U/L Alkaline Phosphatase (46-116) U/L Total Protein (6.4-8.2) g/dL Albumin (3.4-5.0) g/dL Globulin Albumin/Globulin Ratio Urine Color Dark yellow (YELLOW) Urine Appearance Clear (CLEAR) Urine pH 6.5 (5.0-9.0) Ur Specific [place] 1.025 (1.005-1.030) Urine Protein Negative (NEGATIVE) Urine Glucose (UA) Negative (NEGATIVE) Urine Ketones Negative (NEGATIVE) Urine Occult Blood Negative (NEGATIVE) Urine Nitrite Negative (NEGATIVE) Urine Bilirubin Negative (NEGATIVE) Urine Urobilinogen 0.2 (0.2-1.0) mg/dL Ur Leukocyte Esterase Negative (NEGATIVE) SARS-CoV-2 RNA (RALPH) Negative (NEGATIVE) Result Diagrams: 04/17/21 07:00 04/17/21 07:00 - Problem List (1) Compression fracture of L1 lumbar vertebra SNOMED Code(s): 368948361, 446722656, [id number] ICD Code: S32.010A - WEDGE COMPRESSION FRACTURE OF FIRST LUMBAR VERTEBRA, INIT Status: Acute Current Visit: No Qualifiers: Encounter type: initial encounter Qualified Code(s): S32.010A - Wedge compression fracture of first lumbar vertebra, initial encounter for closed fracture (2) Muscle spasm of back SNOMED Code(s): 444313294 ICD Code: M62.830 - MUSCLE SPASM OF BACK Status: Acute Current Visit: No Problem List Initiated/Reviewed/Updated: Yes Orders Last 24hrs: Active Orders 24 hr Category Date Time Status Admission Diagnosis [ADT] Routine ADT 04/17/21 09:28 Ordered Admission Status [Patient Status] [ADT] Routine ADT 04/17/21 09:28 Active Oxygen Therapy [RC] PRN Care 04/17/21 10:21 Active Up With Assistance [RC] ASDIRECTED Care 04/17/21 10:21 Active VTE/DVT Education [RC] PER UNIT ROUTINE Care 04/17/21 10:21 Active Vital Signs [RC] Q8H Care 04/17/21 10:21 Active Consult to Case Management/Library Attendant [CONS] Cons 04/17/21 10:21 Active Routine OT Evaluation and Treatment [CONS] Routine Cons 04/17/21 10:21 Active PT Evaluation and Treatment [CONS] Routine Cons 04/17/21 10:21 Active Regular Diet [DIET] Diet 04/17/21 Lunch Active Acetaminophen [TylenoL] Med 04/17/21 10:30 Active 650 mg PO Q6H HYDROmorphone [Dilaudid] Med 04/17/21 10:21 Active 0.25 mg IVPUSH Q4H PRN Ondansetron [Zofran ODT] Med 04/17/21 10:21 Active 4 mg PO Q4H PRN Sodium Chloride 0.9% [Normal Saline] 500 ml Med 04/17/21 08:15 Active IV .BOLUS oxyCODONE Med 04/17/21 10:21 Active 5 mg PO Q6H PRN polyethylene glycoL 3350 [MiraLAX] Med 04/17/21 10:21 Active 17 gm PO DAILY PRN Resuscitation Status Routine Resus Stat 04/17/21 10:21 Ordered Medication Orders Acetaminophen (Acetaminophen 325 Mg Tab) 650 mg PO Q6H INDU Hydromorphone HCl (Hydromorphone 1 Mg/Ml Syringe) 0.25 mg IVPUSH Q4H PRN PRN Reason: Pain (severe 7-10) Sodium Chloride (Normal Saline) 500 mls @ 999 mls/hr IV .BOLUS INDU Last Admin: 04/17/21 08:10 Dose: 999 mls/hr Documented by: VERONICA Ondansetron HCl (Ondansetron 4 Mg Tab.Dis) 4 mg PO Q4H PRN PRN Reason: nausea, able to take PO Oxycodone HCl (Oxycodone 5 Mg Tab) 5 mg PO Q6H PRN PRN Reason: Pain (moderate 4-6) Polyethylene Glycol (Polyethylene Glycol 3350 Powder 17 Gm Packet) 17 gm PO DAILY PRN PRN Reason: Constipation Assessment/Plan Comment:: 81-year-old male with a past medical history of GERD, hyperlipidemia, iron deficiency anemia, questionable history of TIA who presented after mechanical fall this found to have an L1 compression fracture L1 compression fracture We will scheduled Tylenol, as needed NSAIDs, as needed oxycodone, as needed fentanyl, as needed lidocaine patch, physical therapy and occupational therapy, social worker assistant for possible placement pending progress Iron deficiency anemia Chronic, stable - patient states he has been getting iron supplementations from his PCP, patient appears to have also received Feraheme, patient states he had a colonoscopy 3 months ago which only found a polyp GERDcontinue omeprazole Hyperlipidemiacontinue statin ? history of TIA change to 81 mg aspirin daily Fluidsnone Electrolyteswithin normal limits DietGeneral DVT prophylaxislow risk
[2021-04-17] MEDS ORDERED: Acetaminophen 325 MG Tab PO PRN (11:21)
[2021-04-17] MEDS ORDERED: Ibuprofen 600 MG Tab PO PRN (11:21)
[2021-04-17] MEDS: Acetaminophen 325 MG Tab PO SCH ×3 (12:16→21:31)
[2021-04-17] MEDS: Lidocaine 5% 700 MG Patch TRDERM SCH (13:34)
[2021-04-17] MEDS ORDERED: Sodium Chloride 0.9% 10 ML Syringe FLUSH PRN (15:28)
[2021-04-17] MEDS ORDERED: Rosuvastatin 10 MG Tab PO SCH (21:00)
[2021-04-18] MEDS: Acetaminophen 325 MG Tab PO SCH ×2 (04:36→10:40)
[2021-04-18] MEDS: Omeprazole 20 MG Cap.CR PO SCH ×2 (04:37→05:02)
--- NOTE | 2021-04-18 07:11 | PCM.PN ---
- General Info Date of Service: 04/18/21 Functional Status: Reports: Pain Controlled - Review of Systems General: Reports: No Symptoms HEENT: Reports: No Symptoms Pulmonary: Reports: No Symptoms Cardiovascular: Reports: No Symptoms Gastrointestinal: Reports: No Symptoms Genitourinary: Reports: No Symptoms Musculoskeletal: Reports: No Symptoms Skin: Reports: No Symptoms Neurological: Reports: No Symptoms Psychiatric: Reports: No Symptoms Systems Review Comment:: Patient states that his back pain is improved this morning. He states that when he is at rest it is a 0 out of 10. Patient states he still is having some issues with back spasms when he gets up and walks. Patient does tell me that he was taking some muscle relaxers at home that he had [facility] and stated that those had run out but those seem to help. Patient has not used any narcotic medications and states he wishes to avoid this and is only been taking Tylenol. States he does feel that he will be able to manage his pain at home with some oral medications. - Patient Data Vitals - Most Recent: Last Vital Signs Temp 97.7 F 04/17/21 22:32 Pulse 72 04/17/21 22:32 Resp 20 04/17/21 22:32 BP 108/54 L 04/17/21 22:32 Pulse Ox 96 04/17/21 22:32 Weight - Most Recent: 164 lb 14.4 oz I&O - Last 24 Hours: Intake & Output 04/17/21 04/18/21 04/18/21 22:59 06:59 14:59 Intake Total 580 100 Output Total 300 Balance 580 -200 Lab Results Last 24 Hours: Laboratory Results - last 24 hr 04/17/21 04/17/21 04/17/21 Range/Units 07:00 07:00 07:00 WBC 4.1 L (5.0-10.0) 10^3/uL RBC 2.98 L (4.6-6.2) 10^6/uL Hgb 9.5 L (14.0-18.0) g/dL Hct 29.1 L (40.0-54.0) % MCV 97.7 (80-100) fL MCH 31.9 (27.0-34.0) pg MCHC 32.6 L (33.0-35.0) g/dL Plt Count 132 L (150-450) 10^3/uL Neut % (Auto) 63.3 (42.2-75.2) % Lymph % (Auto) 7.8 L (20.5-50.1) % [place] % (Auto) 22.5 H (2-8) % Eos % (Auto) 2.0 (1.0-3.0) % Baso % (Auto) 4.4 H (0.0-1.0) % Add Manual Diff Yes Neutrophils % (Manual) 69 (42-75) % Band Neutrophils % 11 % Lymphocytes % (Manual) 7 L (20-50) % Atypical Lymphs % 0 % Monocytes % (Manual) 10 H (2-8) % Eosinophils % (Manual) 3 (1-3) % PT 10.4 (9.0-12.0) SEC INR 1.0 (0.9-1.2) Sodium 138 (136-145) mmol/L Potassium 4.6 (3.5-5.1) mmol/L Chloride 103 (98-107) mmol/L Carbon Dioxide 25 (21-32) mmol/L Anion Gap 14.6 H (7-13) mEq/L BUN 24 H (7-18) mg/dL Creatinine 1.32 H (0.70-1.30) mg/dL Est Cr Clr Drug Dosing TNP Estimated GFR (MDRD) 52 BUN/Creatinine Ratio 18.2 (No establ ref range) Glucose 98 (70-99) mg/dL Calcium 8.6 (8.5-10.1) mg/dL Total Bilirubin 0.4 (0.2-1.0) mg/dL AST 20 (15-37) U/L ALT 22 (16-63) U/L Alkaline Phosphatase 37 L (46-116) U/L Total Protein 5.5 L (6.4-8.2) g/dL Albumin 2.9 L (3.4-5.0) g/dL Globulin 2.6 Albumin/Globulin Ratio 1.12 Urine Color (YELLOW) Urine Appearance (CLEAR) Urine pH (5.0-9.0) Ur Specific [place] (1.005-1.030) Urine Protein (NEGATIVE) Urine Glucose (UA) (NEGATIVE) Urine Ketones (NEGATIVE) Urine Occult Blood (NEGATIVE) Urine Nitrite (NEGATIVE) Urine Bilirubin (NEGATIVE) Urine Urobilinogen (0.2-1.0) mg/dL Ur Leukocyte Esterase (NEGATIVE) SARS-CoV-2 RNA (RALPH) (NEGATIVE) 04/17/21 04/17/21 Range/Units 08:35 08:38 WBC (5.0-10.0) 10^3/uL RBC (4.6-6.2) 10^6/uL Hgb (14.0-18.0) g/dL Hct (40.0-54.0) % MCV (80-100) fL MCH (27.0-34.0) pg MCHC (33.0-35.0) g/dL Plt Count (150-450) 10^3/uL Neut % (Auto) (42.2-75.2) % Lymph % (Auto) (20.5-50.1) % [place] % (Auto) (2-8) % Eos % (Auto) (1.0-3.0) % Baso % (Auto) (0.0-1.0) % Add Manual Diff Neutrophils % (Manual) (42-75) % Band Neutrophils % % Lymphocytes % (Manual) (20-50) % Atypical Lymphs % % Monocytes % (Manual) (2-8) % Eosinophils % (Manual) (1-3) % PT (9.0-12.0) SEC INR (0.9-1.2) Sodium (136-145) mmol/L Potassium (3.5-5.1) mmol/L Chloride (98-107) mmol/L Carbon Dioxide (21-32) mmol/L Anion Gap (7-13) mEq/L BUN (7-18) mg/dL Creatinine (0.70-1.30) mg/dL Est Cr Clr Drug Dosing Estimated GFR (MDRD) BUN/Creatinine Ratio (No establ ref range) Glucose (70-99) mg/dL Calcium (8.5-10.1) mg/dL Total Bilirubin (0.2-1.0) mg/dL AST (15-37) U/L ALT (16-63) U/L Alkaline Phosphatase (46-116) U/L Total Protein (6.4-8.2) g/dL Albumin (3.4-5.0) g/dL Globulin Albumin/Globulin Ratio Urine Color Dark yellow (YELLOW) Urine Appearance Clear (CLEAR) Urine pH 6.5 (5.0-9.0) Ur Specific [place] 1.025 (1.005-1.030) Urine Protein Negative (NEGATIVE) Urine Glucose (UA) Negative (NEGATIVE) Urine Ketones Negative (NEGATIVE) Urine Occult Blood Negative (NEGATIVE) Urine Nitrite Negative (NEGATIVE) Urine Bilirubin Negative (NEGATIVE) Urine Urobilinogen 0.2 (0.2-1.0) mg/dL Ur Leukocyte Esterase Negative (NEGATIVE) SARS-CoV-2 RNA (RALPH) Negative (NEGATIVE) Med Orders - Current: Current Medications Acetaminophen (Acetaminophen 325 Mg Tab) 650 mg PO Q6H [facility] Last Admin: 04/18/21 04:36 Dose: 650 mg Documented by: Aspirin (Aspirin 81 Mg Tab.Chew) 81 mg PO WITHBREAKFAST [facility] Hydromorphone HCl (Hydromorphone 1 Mg/Ml Syringe) 0.25 mg IVPUSH Q4H PRN PRN Reason: Pain (severe 7-10) Ibuprofen (Ibuprofen 600 Mg Tab) 600 mg PO TID PRN PRN Reason: Pain Lidocaine (Lidocaine 5% 700 Mg Patch) 700 mg TRDERM DAILY [facility] Last Admin: 04/17/21 13:34 Dose: 700 mg Documented by: Miscellaneous Information (Remove Patch) 1 ea TRDERM BEDTIME [facility] Last Admin: 04/17/21 21:35 Dose: 1 ea Documented by: Omeprazole (Omeprazole 20 Mg Cap.Cr) 20 mg PO ACBREAKFAST [facility] Last Admin: 04/18/21 05:02 Dose: Not Given Documented by: Ondansetron HCl (Ondansetron 4 Mg Tab.Dis) 4 mg PO Q4H PRN PRN Reason: nausea, able to take PO Oxycodone HCl (Oxycodone 5 Mg Tab) 5 mg PO Q6H PRN PRN Reason: Pain (moderate 4-6) Polyethylene Glycol (Polyethylene Glycol 3350 Powder 17 Gm Packet) 17 gm PO DAILY PRN PRN Reason: Constipation Rosuvastatin Calcium (Rosuvastatin 10 Mg Tab) 20 mg PO BEDTIME [facility] Last Admin: 04/17/21 21:30 Dose: 20 mg Documented by: Sodium Chloride (Sodium Chloride 0.9% 10 Ml Syringe) 10 ml FLUSH ASDIRECTED PRN PRN Reason: Keep Vein Open Discontinued Medications Acetaminophen (Acetaminophen 325 Mg Tab) 650 mg PO Q6HR PRN PRN Reason: Pain Fentanyl (Fentanyl 100 Mcg/2 Ml Sdv) 25 mcg IVPUSH ONETIME ONE Stop: 04/17/21 06:55 Last Admin: 04/17/21 07:09 Dose: 25 mcg Documented by: Fentanyl (Fentanyl 100 Mcg/2 Ml Sdv) 25 mcg IVPUSH ONETIME ONE Stop: 04/17/21 08:07 Last Admin: 04/17/21 11:32 Dose: Not Given Documented by: Fentanyl (Fentanyl 100 Mcg/2 Ml Sdv) 25 mcg IVPUSH ONETIME ONE Stop: 04/17/21 09:12 Last Admin: 04/17/21 09:25 Dose: 25 mcg Documented by: Sodium Chloride (Normal Saline) 500 mls @ 999 mls/hr IV .BOLUS INDU Last Admin: 04/17/21 08:10 Dose: 999 mls/hr Documented by: Ondansetron HCl (Ondansetron 4 Mg/2 Ml Sdv) 4 mg IVPUSH ONETIME ONE Stop: 04/17/21 06:55 Last Admin: 04/17/21 07:07 Dose: 4 mg Documented by: - Exam General: Alert, Oriented HEENT: Pupils Equal, Pupils Reactive, EOMI, Mucous Membr. Moist/[place] Neck: Supple Lungs: Clear to Auscultation, Normal Respiratory Effort Cardiovascular: Regular Rate, Regular Rhythm GI/Abdominal Exam: Soft, Non-Tender Back Exam: Normal Inspection, Muscle Spasm Extremities: Normal Inspection, Normal Range of Motion, Non-Tender, No Pedal Edema, Normal Capillary Refill Skin: Warm, Dry, Intact Wound/Incisions: Healing Well Neurological: No New Focal Deficit Psy/Mental Status: Alert, Normal Affect, Normal Mood - Patient Data Lab Results Last 24 hrs: Laboratory Results - last 24 hr 04/17/21 04/17/21 04/17/21 Range/Units 07:00 07:00 07:00 WBC 4.1 L (5.0-10.0) 10^3/uL RBC 2.98 L (4.6-6.2) 10^6/uL Hgb 9.5 L (14.0-18.0) g/dL Hct 29.1 L (40.0-54.0) % MCV 97.7 (80-100) fL MCH 31.9 (27.0-34.0) pg MCHC 32.6 L (33.0-35.0) g/dL Plt Count 132 L (150-450) 10^3/uL Neut % (Auto) 63.3 (42.2-75.2) % Lymph % (Auto) 7.8 L (20.5-50.1) % [place] % (Auto) 22.5 H (2-8) % Eos % (Auto) 2.0 (1.0-3.0) % Baso % (Auto) 4.4 H (0.0-1.0) % Add Manual Diff Yes Neutrophils % (Manual) 69 (42-75) % Band Neutrophils % 11 % Lymphocytes % (Manual) 7 L (20-50) % Atypical Lymphs % 0 % Monocytes % (Manual) 10 H (2-8) % Eosinophils % (Manual) 3 (1-3) % PT 10.4 (9.0-12.0) SEC INR 1.0 (0.9-1.2) Sodium 138 (136-145) mmol/L Potassium 4.6 (3.5-5.1) mmol/L Chloride 103 (98-107) mmol/L Carbon Dioxide 25 (21-32) mmol/L Anion Gap 14.6 H (7-13) mEq/L BUN 24 H (7-18) mg/dL Creatinine 1.32 H (0.70-1.30) mg/dL Est Cr Clr Drug Dosing TNP Estimated GFR (MDRD) 52 BUN/Creatinine Ratio 18.2 (No establ ref range) Glucose 98 (70-99) mg/dL Calcium 8.6 (8.5-10.1) mg/dL Total Bilirubin 0.4 (0.2-1.0) mg/dL AST 20 (15-37) U/L ALT 22 (16-63) U/L Alkaline Phosphatase 37 L (46-116) U/L Total Protein 5.5 L (6.4-8.2) g/dL Albumin 2.9 L (3.4-5.0) g/dL Globulin 2.6 Albumin/Globulin Ratio 1.12 Urine Color (YELLOW) Urine Appearance (CLEAR) Urine pH (5.0-9.0) Ur Specific [place] (1.005-1.030) Urine Protein (NEGATIVE) Urine Glucose (UA) (NEGATIVE) Urine Ketones (NEGATIVE) Urine Occult Blood (NEGATIVE) Urine Nitrite (NEGATIVE) Urine Bilirubin (NEGATIVE) Urine Urobilinogen (0.2-1.0) mg/dL Ur Leukocyte Esterase (NEGATIVE) SARS-CoV-2 RNA (RALPH) (NEGATIVE) 04/17/21 04/17/21 Range/Units 08:35 08:38 WBC (5.0-10.0) 10^3/uL RBC (4.6-6.2) 10^6/uL Hgb (14.0-18.0) g/dL Hct (40.0-54.0) % MCV (80-100) fL MCH (27.0-34.0) pg MCHC (33.0-35.0) g/dL Plt Count (150-450) 10^3/uL Neut % (Auto) (42.2-75.2) % Lymph % (Auto) (20.5-50.1) % [place] % (Auto) (2-8) % Eos % (Auto) (1.0-3.0) % Baso % (Auto) (0.0-1.0) % Add Manual Diff Neutrophils % (Manual) (42-75) % Band Neutrophils % % Lymphocytes % (Manual) (20-50) % Atypical Lymphs % % Monocytes % (Manual) (2-8) % Eosinophils % (Manual) (1-3) % PT (9.0-12.0) SEC INR (0.9-1.2) Sodium (136-145) mmol/L Potassium (3.5-5.1) mmol/L Chloride (98-107) mmol/L Carbon Dioxide (21-32) mmol/L Anion Gap (7-13) mEq/L BUN (7-18) mg/dL Creatinine (0.70-1.30) mg/dL Est Cr Clr Drug Dosing Estimated GFR (MDRD) BUN/Creatinine Ratio (No establ ref range) Glucose (70-99) mg/dL Calcium (8.5-10.1) mg/dL Total Bilirubin (0.2-1.0) mg/dL AST (15-37) U/L ALT (16-63) U/L Alkaline Phosphatase (46-116) U/L Total Protein (6.4-8.2) g/dL Albumin (3.4-5.0) g/dL Globulin Albumin/Globulin Ratio Urine Color Dark yellow (YELLOW) Urine Appearance Clear (CLEAR) Urine pH 6.5 (5.0-9.0) Ur Specific [place] 1.025 (1.005-1.030) Urine Protein Negative (NEGATIVE) Urine Glucose (UA) Negative (NEGATIVE) Urine Ketones Negative (NEGATIVE) Urine Occult Blood Negative (NEGATIVE) Urine Nitrite Negative (NEGATIVE) Urine Bilirubin Negative (NEGATIVE) Urine Urobilinogen 0.2 (0.2-1.0) mg/dL Ur Leukocyte Esterase Negative (NEGATIVE) SARS-CoV-2 RNA (RALPH) Negative (NEGATIVE) Result Diagrams: 04/17/21 07:00 04/17/21 07:00 Sepsis Event Note - Evaluation Sepsis Screening Result: No Definite Risk - Focused Exam Vital Signs: Vital Signs Temp Pulse Resp BP Pulse Ox 04/17/21 22:32 97.7 F 72 20 108/54 L 96 - Problem List & Annotations (1) Compression fracture of L1 lumbar vertebra SNOMED Code(s): 225581560, 748986076, 47560046590024404 Code(s): S32.010A - WEDGE COMPRESSION FRACTURE OF FIRST LUMBAR VERTEBRA, INIT Status: Acute Current Visit: No Qualifiers: Encounter type: initial encounter Qualified Code(s): S32.010A - Wedge compression fracture of first lumbar vertebra, initial encounter for closed fracture (2) Muscle spasm of back SNOMED Code(s): 301307023 Code(s): M62.830 - MUSCLE SPASM OF BACK Status: Acute Current Visit: No - Problem List Review Problem List Initiated/Reviewed/Updated: Yes - My Orders Last 24 Hours: My Active Orders 04/17/21 10:21 Oxygen Therapy [RC] PRN Up With Assistance [RC] VTE/DVT Education [RC] Vital Signs [RC] 00,08,16 Consult to Case Management/Gleason Operator [CONS] Routine OT Evaluation and Treatment [CONS] Routine PT Evaluation and Treatment [CONS] Routine HYDROmorphone [Dilaudid] 0.25 mg IVPUSH Q4H PRN Ondansetron [Zofran ODT] 4 mg PO Q4H PRN oxyCODONE 5 mg PO Q6H PRN polyethylene glycoL 3350 [MiraLAX] 17 gm PO DAILY PRN Resuscitation Status Routine 04/17/21 10:30 Acetaminophen [TylenoL] 650 mg PO Q6H 04/17/21 11:21 Ibuprofen [Motrin] 600 mg PO TID PRN 04/17/21 Lunch Regular Diet [DIET] 04/17/21 12:30 Lidocaine 5% [Lidoderm 5%] 700 mg TRDERM DAILY 04/17/21 15:28 Peripheral IV Care [RC] Sodium Chloride 0.9% [Saline Flush] 10 ml FLUSH ASDIRECTED PRN Peripheral IV Insertion Adult [OM.PC] Routine 04/17/21 21:00 Remove Patch 1 ea TRDERM BEDTIME Rosuvastatin [Crestor] 20 mg PO BEDTIME 04/18/21 06:00 Omeprazole 20 mg PO ACBREAKFAST 04/18/21 08:00 Aspirin 81 mg PO WITHBREAKFAST - Plan Plan:: 81-year-old male with a past medical history of GERD, hyperlipidemia, iron deficiency anemia, questionable history of TIA who presented after mechanical fall this found to have an L1 compression fracture L1 compression fracture -Patient's pain is stable with Tylenol only, patient has not required any opioid medications. Patient wishes to try something for his muscle spasms. Will order Flexeril every 6 hours as needed. Will attempt to ambulate patient today and if he does well we will discharge him home with as needed Flexeril. We will have him follow-up with PCP and possibly physical therapy. Iron deficiency anemia Chronic, stable - patient states he has been getting iron supplementations from his PCP, patient appears to have also received Feraheme, patient states he had a colonoscopy 3 months ago which only found a polyp GERDcontinue omeprazole Hyperlipidemiacontinue statin ? history of TIA changed to 81 mg aspirin daily Fluidsnone Electrolyteswithin normal limits DietGeneral DVT prophylaxislow risk -we will attempt to ambulate and discharged today
[2021-04-18 07:43] VITALS: BP 116/52; PULSE 80
[2021-04-18] MEDS ORDERED: Cyclobenzaprine 10 MG Tab PO PRN (07:50)
[2021-04-18] MEDS ORDERED: Aspirin 81 MG Tab.Chew PO SCH (08:00)
[2021-04-18] MEDS: Lidocaine 5% 700 MG Patch TRDERM SCH (09:10)
--- NOTE | 2021-04-18 10:40 | PCM.DCSUM1 ---
Discharge Summary - Hospital Course Free Text/Narrative:: HPI - Patient is an 81-year-old male with a past medical history of hyperlipidemia, iron deficiency anemia who presented after mechanical fall with back pain was found to have a L1 compression fracture. Patient states that several days ago he was lifting quite a bit of heavy material and noticed a sudden onset pain in his lower back. Patient states that this pain persisted but was tolerable after he visited the urgent care. Patient states that last night 04-16-21 he fell after he had gotten out of bed to take his dog out. Patient states that he had a sudden onset of significant back pain and had his call EMS for further transfer. In the emergency department patient was hemodynamically stable. Laboratory studies were within normal ones with exception of hemoglobin of 9.5 which is similar to his baseline, creatinine of 1.32. CT abdomen pelvis had no acute findings, CT head, cervical spine showed no acute findings. CT lumbar spine showed a L1 superior endplate fracture. Patient was requiring IV pain medications and was unable to ambulate thus was admitted for further evaluation. Upon discussion with patient stated the above story. Patient denies any numbness, weakness in his lower extremities. Patient says he is just limited by pain. Patient states he had a mechanical fall and denies any concerning findings for syncope. States that he has a history of iron deficiency anemia and is in taking iron supplementation but stopped this was due to constipation. States that he is been working with his primary care provider to try to find the reason for his iron deficiency anemia. States that he has been getting iron infusions lately and he did have a colonoscopy 3 months ago with no concerning findings. Patient states he lives at his home with his and his dog and is fairly active. Patient did well overnight and only required p.o. Tylenol for his back pain. The following day patient stated that he was having more trouble with spasms and was given Flexeril oral with improvement. Patient was able to be ambulatory and was able to ambulate on his own with no concerns. Patient's physical exam remained unchanged. Patient was medically stable for discharge and discharged home. Patient will have follow-up with his PCP post hospitalization. Recommend consideration for physical therapy if patient continues to have mobility issues during that follow-up visit. - Discharge Data Discharge Date: 04/18/21 Discharge Disposition: Home, Self-Care 01 Condition: Good - Referral to Home Health Primary Care Physician: PCP None - Discharge Diagnosis/Problem(s) (1) Compression fracture of L1 lumbar vertebra SNOMED Code(s): 026448445, 091472035, [id number] ICD Code: S32.010A - WEDGE COMPRESSION FRACTURE OF FIRST LUMBAR VERTEBRA, INIT Status: Acute Current Visit: No Qualifiers: Encounter type: initial encounter Qualified Code(s): S32.010A - Wedge compression fracture of first lumbar vertebra, initial encounter for closed fracture (2) Muscle spasm of back SNOMED Code(s): 468419851 ICD Code: M62.830 - MUSCLE SPASM OF BACK Status: Acute Current Visit: No - Patient Summary/Data Consults: Consultations 04/17/21 10:21 Consult to Case Management/Teletype Or [place] Keyboard Operator [CONS] Routine OT Evaluation and Treatment [CONS] Routine PT Evaluation and Treatment [CONS] Routine - Patient Instructions Diet: Heart Healthy Diet Activity: No Lifting Over 20 Pounds, No Strenuous Activities Driving: Do Not Drive - Discharge Plan *PRESCRIPTION DRUG MONITORING PROGRAM REVIEWED*: Yes *COPY OF PRESCRIPTION DRUG MONITORING REPORT IN PATIENT HIMANSHU: No Prescriptions/Med Rec: Cyclobenzaprine [Flexeril] 5 mg PO Q8H PRN #14 tablet PRN Reason: Pain Tobacco Cessation Medication: Prescription Refused Home Medications: Home Meds Rosuvastatin [Crestor] 20 mg PO BEDTIME 12/23/14 [History] Cyanocobalamin (Vitamin B-12) [Cyanocobalamin Injection] 1,000 mcg INJECT ASDIRECTED 03/13/15 [History] Acetaminophen 650 mg PO Q6HR PRN 08/24/18 [History] Ibuprofen 600 mg PO TID PRN 08/24/18 [History] Multivitamin-Min/Iron/FA/Vit K [Multi-Day Plus Minerals Tablet] 1 tab PO DAILY 08/24/18 [History] Omeprazole 20 mg PO DAILY 12/21/20 [History] Aspirin 81 mg PO WITHBREAKFAST tab.chew 04/18/21 [Rx] Cyclobenzaprine [Flexeril] 5 mg PO Q8H PRN #14 tablet 04/18/21 [Rx] Forms: ED Department Discharge Referrals: PCP,None [Primary Care Provider] - - Discharge Summary/Plan Comment DC Time >30 min.: Yes Total # of Minutes for Discharge Time: 30 minutes - Patient Data Vitals - Most Recent: Last Vital Signs Temp 98.6 F 04/18/21 07:43 Pulse 80 04/18/21 07:43 Resp 20 04/18/21 07:43 BP 116/52 L 04/18/21 07:43 Pulse Ox 96 04/18/21 07:43 Weight - Most Recent: 164 lb 14.4 oz I&O - Last 24 hours: Intake & Output 04/17/21 04/18/21 04/18/21 22:59 06:59 14:59 Intake Total 580 100 420 Output Total 300 Balance 580 -200 420 Med Orders - Current: Current Medications Acetaminophen (Acetaminophen 325 Mg Tab) 650 mg PO Q6H [facility] Last Admin: 04/18/21 04:36 Dose: 650 mg Documented by: Aspirin (Aspirin 81 Mg Tab.Chew) 81 mg PO WITHBREAKFAST [facility] Last Admin: 04/18/21 08:08 Dose: 81 mg Documented by: Cyclobenzaprine HCl (Cyclobenzaprine 10 Mg Tab) 5 mg PO Q8H PRN PRN Reason: Pain Last Admin: 04/18/21 08:08 Dose: 5 mg Documented by: Hydromorphone HCl (Hydromorphone 1 Mg/Ml Syringe) 0.25 mg IVPUSH Q4H PRN PRN Reason: Pain (severe 7-10) Ibuprofen (Ibuprofen 600 Mg Tab) 600 mg PO TID PRN PRN Reason: Pain Lidocaine (Lidocaine 5% 700 Mg Patch) 700 mg TRDERM DAILY [facility] Last Admin: 04/18/21 09:10 Dose: 700 mg Documented by: Miscellaneous Information (Remove Patch) 1 ea TRDERM BEDTIME [facility] Last Admin: 04/17/21 21:35 Dose: 1 ea Documented by: Omeprazole (Omeprazole 20 Mg Cap.Cr) 20 mg PO ACBREAKFAST [facility] Last Admin: 04/18/21 05:02 Dose: Not Given Documented by: Ondansetron HCl (Ondansetron 4 Mg Tab.Dis) 4 mg PO Q4H PRN PRN Reason: nausea, able to take PO Oxycodone HCl (Oxycodone 5 Mg Tab) 5 mg PO Q6H PRN PRN Reason: Pain (moderate 4-6) Polyethylene Glycol (Polyethylene Glycol 3350 Powder 17 Gm Packet) 17 gm PO DAILY PRN PRN Reason: Constipation Rosuvastatin Calcium (Rosuvastatin 10 Mg Tab) 20 mg PO BEDTIME [facility] Last Admin: 04/17/21 21:30 Dose: 20 mg Documented by: Sodium Chloride (Sodium Chloride 0.9% 10 Ml Syringe) 10 ml FLUSH ASDIRECTED PRN PRN Reason: Keep Vein Open Discontinued Medications Acetaminophen (Acetaminophen 325 Mg Tab) 650 mg PO Q6HR PRN PRN Reason: Pain Fentanyl (Fentanyl 100 Mcg/2 Ml Sdv) 25 mcg IVPUSH ONETIME ONE Stop: 04/17/21 06:55 Last Admin: 04/17/21 07:09 Dose: 25 mcg Documented by: Fentanyl (Fentanyl 100 Mcg/2 Ml Sdv) 25 mcg IVPUSH ONETIME ONE Stop: 04/17/21 08:07 Last Admin: 04/17/21 11:32 Dose: Not Given Documented by: Fentanyl (Fentanyl 100 Mcg/2 Ml Sdv) 25 mcg IVPUSH ONETIME ONE Stop: 04/17/21 09:12 Last Admin: 04/17/21 09:25 Dose: 25 mcg Documented by: Sodium Chloride (Normal Saline) 500 mls @ 999 mls/hr IV .BOLUS INDU Last Admin: 04/17/21 08:10 Dose: 999 mls/hr Documented by: Ondansetron HCl (Ondansetron 4 Mg/2 Ml Sdv) 4 mg IVPUSH ONETIME ONE Stop: 04/17/21 06:55 Last Admin: 04/17/21 07:07 Dose: 4 mg Documented by:
== END 2021-04-18 12:05 | disposition home or self-care (01) ==
LOC: DL.ED 06:32 → DL.MS 09:28 → DL.ED 09:38
PROVIDERS: ADMIT Internal Medicine; ATTEND Internal Medicine
DX: S32.010A Wedge compression fracture of first lumbar vertebra, initial encounter for closed fracture (principal); M62.830 Muscle spasm of back; E78.00 Pure hypercholesterolemia, unspecified; D50.9 Iron deficiency anemia, unspecified; Z79.82 Long term (current) use of aspirin; Z79.899 Other long term (current) drug therapy; Z20.822 Contact with and (suspected) exposure to COVID-19; Z88.1 Allergy status to other antibiotic agents; Z88.6 Allergy status to analgesic agent; Z86.73 Personal history of transient ischemic attack (TIA), and cerebral infarction without residual deficits; W19.XXXA Unspecified fall, initial encounter
CPT/HCPCS: 36415; 70450; 72125; 72131; 72192; 80053; 81003; 85025; 85610; 96374; 96375; 96376; 99285-25; A9270-GY; G0378; J2405; J3010; J7040; U0002

== ENCOUNTER 2022-02-24 13:41 | Emergency (ER) | payer MEDICARE, OTHER ==
[2022-02-24 14:36] LABS: ANION GAP 12.3 mEq/L (7-13); CHLORIDE,CL 101 mmol/L (98-107); SODIUM,NA 135 mmol/L (136-145)
[2022-02-24 14:38] LABS: ESTIMATED GFR 45 mL/min (>=60)
[2022-02-24 14:48] LABS: PTT,PARTIAL THROMBOPLSTIN TIME 25.6 SEC (22.0-34.0)
[2022-02-24] MEDS ORDERED: Lidocaine 5% 700 MG Patch TOP ONE (15:42)
== END 2022-02-24 15:55 | disposition home or self-care (01) ==
LOC: DL.ED 13:41
DX: S32.010A Wedge compression fracture of first lumbar vertebra, initial encounter for closed fracture (principal); S12.301A Unspecified nondisplaced fracture of fourth cervical vertebra, initial encounter for closed fracture; S12.401A Unspecified nondisplaced fracture of fifth cervical vertebra, initial encounter for closed fracture; E78.00 Pure hypercholesterolemia, unspecified; K21.9 Gastro-esophageal reflux disease without esophagitis; Z88.0 Allergy status to penicillin; Z88.5 Allergy status to narcotic agent; Z79.899 Other long term (current) drug therapy; Z79.82 Long term (current) use of aspirin; Z90.49 Acquired absence of other specified parts of digestive tract; W01.10XA Fall on same level from slipping, tripping and stumbling with subsequent striking against unspecified object, initial encounter
CPT/HCPCS: 36415; 70450; 71045; 72125; 72131; 80053; 80307; 81001; 83605; 83735; 84484; 85025; 85610; 85730; 86140; 99285; A9270

== ENCOUNTER 2022-03-11 06:54 | Emergency (ER) | payer MEDICARE, OTHER ==
[2022-03-11 07:17] VITALS: BP 124/73; PULSE 73
[2022-03-11] MEDS ORDERED: Sodium Chloride 0.9% 1,000 ML IV ONE (08:18)
== END 2022-03-11 09:30 | disposition home or self-care (01) ==
LOC: DL.ED 06:54
DX: E86.0 Dehydration (principal); E78.00 Pure hypercholesterolemia, unspecified; Z86.73 Personal history of transient ischemic attack (TIA), and cerebral infarction without residual deficits; Z88.0 Allergy status to penicillin; Z88.5 Allergy status to narcotic agent; Z79.899 Other long term (current) drug therapy; Z79.82 Long term (current) use of aspirin; Z20.822 Contact with and (suspected) exposure to COVID-19
CPT/HCPCS: 36415; 70450; 80053; 83735; 84100; 84484; 85025; 85610; 93005; 93010; 96360; 99284; 99284-25; J7030; U0002

== ENCOUNTER 2022-06-15 23:29 | Emergency (ER) | payer MEDICARE, OTHER ==
[2022-06-16 01:18] VITALS: BP 110/61; PULSE 80
[2022-06-16 07:06] LABS: ANION GAP 13.4 mEq/L (7-13); CHLORIDE,CL 101 mmol/L (98-107); ESTIMATED GFR 43 mL/min (>=60); SODIUM,NA 136 mmol/L (136-145)
== END 2022-06-16 02:33 | disposition left against medical advice (07) ==
LOC: DL.ED 23:29
DX: R10.33 Periumbilical pain (principal); E78.00 Pure hypercholesterolemia, unspecified; Z88.0 Allergy status to penicillin; Z88.5 Allergy status to narcotic agent; Z79.899 Other long term (current) drug therapy; Z79.82 Long term (current) use of aspirin; Z90.49 Acquired absence of other specified parts of digestive tract; Z87.891 Personal history of nicotine dependence; Z20.822 Contact with and (suspected) exposure to COVID-19
CPT/HCPCS: 36415; 80053; 80307; 82150; 83605; 83690; 83735; 85025; 86140; 99284; U0002

== ENCOUNTER 2022-10-23 09:38 | Emergency (ER) | payer MEDICARE, OTHER ==
[2022-10-23] MEDS ORDERED: Dexamethasone 4 MG Tab PO ONE (09:39)
[2022-10-23] MEDS ORDERED: Acetaminophen/oxyCODONE 325-5 MG Tab PO ONE (09:39)
[2022-10-23 09:42] VITALS: BP 130/64; PULSE 92
[2022-10-23] MEDS ORDERED: Dexamethasone 4 MG/ML SDV IM ONE (09:53)
[2022-10-23] MEDS ORDERED: HYDROmorphone 1 MG/ML Syringe IM ONE (09:54)
[2022-10-23] MEDS ORDERED: Acetaminophen/oxyCODONE 325-5 MG Tab ONE (10:46)
[2022-10-23] MEDS ORDERED: Dexamethasone 2 MG Tab ONE (10:47)
== END 2022-10-23 10:59 | disposition home or self-care (01) ==
LOC: DL.ED 09:38
DX: M54.50 Low back pain, unspecified (principal); G89.29 Other chronic pain; E78.00 Pure hypercholesterolemia, unspecified; K21.9 Gastro-esophageal reflux disease without esophagitis; Z86.73 Personal history of transient ischemic attack (TIA), and cerebral infarction without residual deficits; Z88.0 Allergy status to penicillin; Z88.5 Allergy status to narcotic agent; Z79.899 Other long term (current) drug therapy; Z79.82 Long term (current) use of aspirin
CPT/HCPCS: 72100; 96372; 99283; 99284; A9270-GY; J1100; J1170; J8540

== ENCOUNTER 2022-12-29 09:31 | Emergency (ER) | payer MEDICARE, OTHER ==
[~2022-12-29 09:31] MED LIST changes: +Bupivacaine 0.25% 10 ML SDV INJECT ONE; -Midazolam 1 MG/ML 2 ML SDV ONE; -fentaNYL 100 MCG/2 ML SDV ONE
[2022-12-29 10:06] VITALS: BP 117/63; PULSE 80
== END 2022-12-29 10:05 | disposition home or self-care (01) ==
LOC: DL.ED 09:31
DX: M62.830 Muscle spasm of back (principal); E78.00 Pure hypercholesterolemia, unspecified; Z79.899 Other long term (current) drug therapy; Z88.0 Allergy status to penicillin; Z88.5 Allergy status to narcotic agent; Z86.73 Personal history of transient ischemic attack (TIA), and cerebral infarction without residual deficits
CPT/HCPCS: 20552; 99284; J3490

== ENCOUNTER 2023-07-15 08:58 | Emergency (ER) | payer MEDICARE, OTHER ==
[2023-07-15] MEDS ORDERED: Lidocaine 2% Jelly 10 ML Urojet MUCMEM ONE ×2 (09:23→10:05)
[2023-07-15 09:27] VITALS: BP 106/60; PULSE 88
[2023-07-15] MEDS ORDERED: Dexamethasone 4 MG/ML SDV IVPUSH ONE (09:27)
[2023-07-15] MEDS ORDERED: Ondansetron 4 MG/2 ML SDV IV ONE (09:27)
[2023-07-15] MEDS ORDERED: HYDROmorphone 1 MG/ML Syringe IVPUSH ONE (09:27)
[2023-07-15] MEDS ORDERED: cefTRIAXone 2 GM Vial IVPUSH ONE (09:29)
[2023-07-15] MEDS: Sodium Chloride 0.9% 10 ML Syringe FLUSH SCH ×3 (09:46→09:50)
[2023-07-15 10:20] LABS: APPEARANCE,URINE SLIGHTLY CLOUDY (CLEAR); BILIRUBIN,URINE NEGATIVE (NEGATIVE); COLOR,URINE YELLOW (YELLOW); GLUCOSE,URINE NEGATIVE (NEGATIVE); KETONES,URINE NEGATIVE (NEGATIVE); LEUKOCYTE ESTERASE,URINE SMALL (NEGATIVE); NITRITE,URINE NEGATIVE (NEGATIVE); OCCULT BLOOD,URINE SMALL (NEGATIVE); PH,URINE 6.5 (5.0-9.0); PROTEIN,URINE 30 (NEGATIVE); UROBILINOGEN,URINE 0.2 mg/dL (0.2-1.0)
[2023-07-15 10:31] LABS: BACTERIA,URINE RARE /HPF (0-FEW/HPF); EPITHELIAL CELLS,URINE MODERATE /HPF (NOT SEEN); MUCUS,URINE NOT SEEN /LPF (NOT SEEN); RBC,URINE 0-5 /HPF (0-5); WBC,URINE 0-5 /HPF (0-5/HPF)
== END 2023-07-15 10:32 | disposition home or self-care (01) ==
LOC: DL.ED 08:58
DX: N48.22 Cellulitis of corpus cavernosum and penis (principal); N48.1 Balanitis; E78.00 Pure hypercholesterolemia, unspecified; Z88.0 Allergy status to penicillin; Z79.899 Other long term (current) drug therapy; Z79.82 Long term (current) use of aspirin; Z90.49 Acquired absence of other specified parts of digestive tract
CPT/HCPCS: 81001; 87086; 96374; 96375; 99284; 99284-25; A9270-GY; J0696; J1100; J1170; J2405; J3490

== ENCOUNTER 2023-08-13 21:18 | Emergency (ER) | payer MEDICARE, OTHER ==
[2023-08-13] MEDS ORDERED: cefTRIAXone 2 GM Vial IVPUSH ONE (22:15)
[2023-08-13] MEDS ORDERED: Morphine 2 MG/ML SYRINGE IVPUSH ONE (22:15)
[2023-08-13] MEDS ORDERED: Dexamethasone 4 MG/ML SDV IVPUSH ONE (22:15)
[2023-08-13 22:24] LABS: APPEARANCE,URINE SLIGHTLY CLOUDY (CLEAR); BILIRUBIN,URINE NEGATIVE (NEGATIVE); COLOR,URINE YELLOW (YELLOW); GLUCOSE,URINE NEGATIVE (NEGATIVE); KETONES,URINE NEGATIVE (NEGATIVE); LEUKOCYTE ESTERASE,URINE SMALL (NEGATIVE); NITRITE,URINE NEGATIVE (NEGATIVE); OCCULT BLOOD,URINE SMALL (NEGATIVE); PROTEIN,URINE 30 (NEGATIVE); UROBILINOGEN,URINE 0.2 mg/dL (0.2-1.0)
[2023-08-13 22:27] LABS: HEMATOCRIT 22.9 % (40.0-54.0); HEMOGLOBIN 7.1 g/dL (14.0-18.0); MEAN CORPUSCULAR VOLUME 93.5 fL (80-100); PLATELET COUNT,PLT 178 10^3/uL (150-450); RED BLOOD CELL COUNT 2.45 10^6/uL (4.6-6.2); WHITE BLOOD CELL COUNT,WBC 4.1 10^3/uL (5.0-10.0)
[2023-08-13 22:34] LABS: BACTERIA,URINE MODERATE /HPF (0-FEW/HPF); EPITHELIAL CELLS,URINE MODERATE /HPF (NOT SEEN); HYALINE CASTS,URINE FEW; WBC,URINE 20-30 /HPF (0-5/HPF)
[2023-08-13 22:43] LABS: ALANINE AMINOTRANSFERASE,ALT 22 U/L (16-63); ALKALINE PHOSPHATASE 49 U/L (46-116); ANION GAP 11.6 mEq/L (7-13); ASPARTATE AMNIOTRANSFERASE,AST 21 U/L (15-37); BILIRUBIN TOTAL 0.2 mg/dL (0.2-1.0); BLOOD UREA NITROGEN,BUN 40 mg/dL (7-18); CALCIUM 8.6 mg/dL (8.5-10.1); CARBON DIOXIDE,CO2 25 mmol/L (21-32); CHLORIDE,CL 102 mmol/L (98-107); CREATININE 1.54 mg/dL (0.70-1.30); EST CRCL DRUG DOSING (CG) 33.93 mL/min; GLUCOSE RANDOM 95 mg/dL (70-99); MAGNESIUM 2.1 mg/dL (1.8-2.4); POTASSIUM,K 4.6 mmol/L (3.5-5.1); PROTEIN TOTAL,TP 6.3 g/dL (6.4-8.2); SODIUM,NA 134 mmol/L (136-145)
[2023-08-13 22:48] LABS: A/G RATIO 0.91; C-REACTIVE PROTEIN < 0.50 ng/dL (<=0.50); ESTIMATED GFR 44 mL/min (>=60)
[2023-08-13 22:49] LABS: EOSINOPHILS PERCENT MAN 3 % (1-3); LYMPHOCYTES PERCENT MAN 17 % (20-50); MONOCYTES PERCENT MAN 29 % (2-8); SEG NEUTROPHILS PERCENT MAN 51 % (42-75)
[2023-08-13] MEDS ORDERED: Fluconazole 100 MG Tab PO ONE (23:46)
[2023-08-13] MEDS ORDERED: Take Home: Ciprofloxacin HCl 500 MG, 6 Tab Pack PO ONE (23:46)
[2023-08-13] MEDS ORDERED: Take Home: Acetaminophen/HYDROcodone 325-5 MG, 5 Tab Pack PO ONE (23:49)
[2023-08-14 13:51] VITALS: BP 147/94; PULSE 82
== END 2023-08-14 00:06 | disposition home or self-care (01) ==
LOC: DL.ED 21:18
DX: N48.1 Balanitis (principal); N48.22 Cellulitis of corpus cavernosum and penis; D64.9 Anemia, unspecified; E78.00 Pure hypercholesterolemia, unspecified; M19.90 Unspecified osteoarthritis, unspecified site; Z88.0 Allergy status to penicillin; Z79.82 Long term (current) use of aspirin; Z90.49 Acquired absence of other specified parts of digestive tract
CPT/HCPCS: 36415; 36430; 80053; 81001; 83735; 85025; 86140; 86850; 86900; 86901; 86920; 86922; 87086; 96374; 96375; 99283; A9270; J0696; J1100; J2270; P9016; 99284

== ENCOUNTER 2023-09-07 20:08 | Emergency (ER) | payer MEDICARE, OTHER ==
[2023-09-07] MEDS ORDERED: Fluconazole 100 MG Tab PO ONE (20:28)
[2023-09-07] MEDS ORDERED: Sodium Chloride 0.9% 10 ML Syringe FLUSH PRN (20:32)
[2023-09-07 20:47] LABS: HEMATOCRIT 25.4 % (40.0-54.0); MEAN CORPUSCULAR HGB CONC 31.5 g/dL (33.0-35.0); MEAN CORPUSCULAR VOLUME 95.1 fL (80-100); PLATELET COUNT,PLT 217 10^3/uL (150-450); RED BLOOD CELL COUNT 2.67 10^6/uL (4.6-6.2); WHITE BLOOD CELL COUNT,WBC 3.6 10^3/uL (5.0-10.0)
[2023-09-07 20:51] LABS: EOSINOPHILS PERCENT AUTO 5.3 % (1.0-3.0); LYMPHOCYTES PERCENT AUTO 28.9 % (20.5-50.1); MONOCYTES PERCENT AUTO 29.1 % (2-8)
[2023-09-07 21:00] LABS: APPEARANCE,URINE CLEAR (CLEAR); BILIRUBIN,URINE NEGATIVE (NEGATIVE); COLOR,URINE YELLOW (YELLOW); GLUCOSE,URINE NEGATIVE (NEGATIVE); KETONES,URINE NEGATIVE (NEGATIVE); LEUKOCYTE ESTERASE,URINE NEGATIVE (NEGATIVE); NITRITE,URINE NEGATIVE (NEGATIVE); OCCULT BLOOD,URINE NEGATIVE (NEGATIVE); PROTEIN,URINE 30 (NEGATIVE); UROBILINOGEN,URINE 0.2 mg/dL (0.2-1.0)
[2023-09-07 21:02] LABS: ANION GAP 15.5 mEq/L (7-13); CALCIUM 8.5 mg/dL (8.5-10.1); CREATININE 1.29 mg/dL (0.70-1.30); EST CRCL DRUG DOSING (CG) 40.5 mL/min; POTASSIUM,K 4.5 mmol/L (3.5-5.1)
[2023-09-07 21:11] LABS: BACTERIA,URINE MODERATE /HPF (0-FEW/HPF); EPITHELIAL CELLS,URINE FEW /HPF (NOT SEEN); MUCUS,URINE FEW /LPF (NOT SEEN); WBC,URINE 0-5 /HPF (0-5/HPF)
[2023-09-07 21:12] LABS: EOSINOPHILS PERCENT MAN 5 % (1-3); LYMPHOCYTES PERCENT MAN 28 % (20-50); MONOCYTES PERCENT MAN 21 % (2-8); SEG NEUTROPHILS PERCENT MAN 46 % (42-75)
[2023-09-07 21:13] LABS: HYPOCHROMASIA 1+ SLIGHT; POIKILOCYTOSIS 1+ SLIGHT
[2023-09-07] MEDS ORDERED: Doxycycline Monohydrate 100 MG Cap PO ONE (21:26)
[2023-09-07 21:42] VITALS: BP 127/89; PULSE 80
== END 2023-09-07 21:35 | disposition home or self-care (01) ==
LOC: DL.ED 20:08
DX: N48.22 Cellulitis of corpus cavernosum and penis (principal); B37.49 Other urogenital candidiasis; E78.00 Pure hypercholesterolemia, unspecified; Z90.49 Acquired absence of other specified parts of digestive tract; Z79.82 Long term (current) use of aspirin; Z79.899 Other long term (current) drug therapy; Z88.0 Allergy status to penicillin
CPT/HCPCS: 36415; 80048; 81001; 85025; 87070; 99283; A9270-GY; J3490

== ENCOUNTER 2023-10-31 05:58 | Day surgery (SDC) | payer MEDICARE, OTHER ==
[2023-10-31] MEDS ORDERED: fentaNYL 100 MCG/2 ML SDV IV ONE (05:59)
[2023-10-31] MEDS ORDERED: Midazolam 1 MG/ML 2 ML SDV IV ONE (05:59)
[2023-10-31] MEDS ORDERED: fentaNYL 100 MCG/2 ML SDV ONE (06:05)
[2023-10-31] MEDS ORDERED: Midazolam 1 MG/ML 2 ML SDV ONE (06:05)
[2023-10-31] MEDS: Dextrose 5%-0.45% NaCl 1,000 ML IV SCH (06:34)
[2023-10-31] MEDS: fentaNYL 100 MCG/2 ML SDV IV ONE ×3 (07:00→07:03)
[2023-10-31] MEDS: Midazolam 1 MG/ML 2 ML SDV IV ONE ×4 (07:01→07:08)
[2023-10-31 10:35] VITALS: BP 144/68; PULSE 69
== END 2023-10-31 09:20 | disposition home or self-care (01) ==
LOC: DL.ENDO 05:58
PROVIDERS: ATTEND Internal Medicine Gastroenterology
DX: K92.2 Gastrointestinal hemorrhage, unspecified (principal); E78.5 Hyperlipidemia, unspecified; D63.8 Anemia in other chronic diseases classified elsewhere; E78.00 Pure hypercholesterolemia, unspecified; E53.8 Deficiency of other specified B group vitamins; K40.21 Bilateral inguinal hernia, without obstruction or gangrene, recurrent; Z88.5 Allergy status to narcotic agent; Z88.0 Allergy status to penicillin
CPT/HCPCS: J2250; J3010; J7042

== ENCOUNTER 2023-12-14 16:47 | Emergency (ER) | payer MEDICARE, OTHER ==
[2023-12-14 17:16] VITALS: BP 148/78; PULSE 66
[2023-12-14] MEDS: Lidocaine 2% Viscous Solution 15 ML UD PO ONE (17:23)
[2023-12-14] MEDS: Ondansetron 4 MG Tab.DIS PO ONE (17:28)
[2023-12-14] MEDS: Doxycycline Monohydrate 100 MG Cap PO ONE (17:29)
== END 2023-12-14 17:35 | disposition home or self-care (01) ==
LOC: DL.ED 16:47
DX: H66.001 Acute suppurative otitis media without spontaneous rupture of ear drum, right ear (principal); E78.00 Pure hypercholesterolemia, unspecified; K21.9 Gastro-esophageal reflux disease without esophagitis; Z88.5 Allergy status to narcotic agent; Z88.6 Allergy status to analgesic agent; Z88.0 Allergy status to penicillin; Z79.82 Long term (current) use of aspirin; Z79.899 Other long term (current) drug therapy; Z86.19 Personal history of other infectious and parasitic diseases
CPT/HCPCS: 99282; 99283; A9270

== ENCOUNTER 2024-01-21 08:11 | Emergency (ER) | payer MEDICARE, OTHER ==
[2024-01-21 08:19] VITALS: BP 105/52; PULSE 85
[2024-01-21] MEDS: Lidocaine 5% Oint 35.44 GM Tube TOP ONE (09:30)
[2024-01-21] MEDS: Dexamethasone 4 MG/ML SDV IVPUSH ONE (09:30)
[2024-01-21] MEDS: Take Home: Cyclobenzaprine 10 MG Tab, 4 Tab Pack PO ONE (10:22)
== END 2024-01-21 10:23 | disposition home or self-care (01) ==
LOC: DL.ED 08:11
DX: M62.830 Muscle spasm of back (principal); E78.00 Pure hypercholesterolemia, unspecified; K21.9 Gastro-esophageal reflux disease without esophagitis; Z90.49 Acquired absence of other specified parts of digestive tract; Z79.82 Long term (current) use of aspirin; Z79.899 Other long term (current) drug therapy; Z88.0 Allergy status to penicillin; Z88.5 Allergy status to narcotic agent; Z88.6 Allergy status to analgesic agent; X50.1XXA Overexertion from prolonged static or awkward postures, initial encounter
CPT/HCPCS: 72128; 72131; 96374; 99284; A9270; J1100

== ENCOUNTER 2024-07-14 07:16 | Emergency (ER) | payer MEDICARE, OTHER ==
[2024-07-14] MEDS: Acetaminophen 500 MG Tab PO ONE (08:16)
[2024-07-14 08:17] LABS: HEMATOCRIT 32.8 % (40.0-54.0); HEMOGLOBIN 10.3 g/dL (14.0-18.0); MEAN CORPUSCULAR HEMOGLOBIN 31.4 pg (27.0-34.0); MEAN CORPUSCULAR HGB CONC 31.4 g/dL (33.0-35.0); PLATELET COUNT,PLT 231 10^3/uL (150-450); RED BLOOD CELL COUNT 3.28 10^6/uL (4.6-6.2); WHITE BLOOD CELL COUNT,WBC 5.9 10^3/uL (5.0-10.0)
[2024-07-14] MEDS: Dicyclomine 20 MG/2 ML SDV IM ONE (08:17)
[2024-07-14] MEDS: Ondansetron 4 MG/2 ML SDV IVPUSH ONE (08:18)
[2024-07-14 08:36] LABS: A/G RATIO 1.1; ALBUMIN 3.4 g/dL (3.4-5.0); ANION GAP 13.2 mEq/L (7-13); BILIRUBIN TOTAL 0.5 mg/dL (0.2-1.0); BUN/CREATININE RATIO 18.1 (No establ ref range); CREATININE 1.93 mg/dL (0.70-1.30); EST CRCL DRUG DOSING (CG) 26.58 mL/min; POTASSIUM,K 4.2 mmol/L (3.5-5.1); PROTEIN TOTAL,TP 6.6 g/dL (6.4-8.2)
[2024-07-14 08:46] LABS: EOSINOPHILS PERCENT MAN 5 % (1-3); LYMPHOCYTES PERCENT MAN 14 % (20-50); MONOCYTES PERCENT MAN 21 % (2-8); SEG NEUTROPHILS PERCENT MAN 60 % (42-75)
[2024-07-14] MEDS: Iopamidol 612 MG/ML 100 ML Bottle IVPUSH ONE (09:02)
[2024-07-14] MEDS: Sodium Chloride 0.9% 500 ML IV SCH (09:15)
[2024-07-14 10:24] LABS: LACTIC ACID 1.7 mmol/L (0.4-2.0)
[2024-07-14] MEDS: Benzocaine 20% Topical Spray UD MUCMEM ONE (10:55)
[2024-07-14 11:38] VITALS: BP 118/58; PULSE 69
== END 2024-07-14 11:32 | disposition other institution (70) ==
LOC: DL.ED 07:16
DX: K56.609 Unspecified intestinal obstruction, unspecified as to partial versus complete obstruction (principal); E78.00 Pure hypercholesterolemia, unspecified; K21.9 Gastro-esophageal reflux disease without esophagitis; Z90.49 Acquired absence of other specified parts of digestive tract; Z79.899 Other long term (current) drug therapy; Z88.0 Allergy status to penicillin; Z88.5 Allergy status to narcotic agent
CPT/HCPCS: 36415; 43752; 74018; 74177; 80053; 83605; 83690; 85025; 96361; 96372; 96374; 99285; A9270; J0500; J2405; J7030; Q9967

== ENCOUNTER 2024-10-27 07:35 | Emergency (ER) | payer MEDICARE, OTHER ==
[2024-10-27 07:51] VITALS: BP 123/52; PULSE 87
== END 2024-10-27 08:57 ==
LOC: DL.ED 07:35
DX: M25.532 Pain in left wrist (principal); K21.9 Gastro-esophageal reflux disease without esophagitis; M19.90 Unspecified osteoarthritis, unspecified site; Z88.5 Allergy status to narcotic agent; Z88.1 Allergy status to other antibiotic agents; Z79.899 Other long term (current) drug therapy; Z90.49 Acquired absence of other specified parts of digestive tract
CPT/HCPCS: 73110-LT; 99283

== ENCOUNTER 2024-12-31 21:08 | Emergency (ER) | payer MEDICARE, OTHER ==
[2024-12-31 21:59] LABS: HEMATOCRIT 31.5 % (40.0-54.0); HEMOGLOBIN 10.2 g/dL (14.0-18.0); MEAN CORPUSCULAR HEMOGLOBIN 32.6 pg (27.0-34.0); MEAN CORPUSCULAR HGB CONC 32.4 g/dL (33.0-35.0); MEAN CORPUSCULAR VOLUME 100.6 fL (80-100); PLATELET COUNT,PLT 173 10^3/uL (150-450); RED BLOOD CELL COUNT 3.13 10^6/uL (4.6-6.2)
[2024-12-31 22:19] LABS: ALANINE AMINOTRANSFERASE,ALT 22 U/L (16-63); ALBUMIN 3.2 g/dL (3.4-5.0); ALKALINE PHOSPHATASE 38 U/L (46-116); ANION GAP 12.4 mEq/L (7-13); ASPARTATE AMNIOTRANSFERASE,AST 19 U/L (15-37); BILIRUBIN TOTAL 0.3 mg/dL (0.2-1.0); BLOOD UREA NITROGEN,BUN 37 mg/dL (7-18); CALCIUM 9.1 mg/dL (8.5-10.1); CARBON DIOXIDE,CO2 27 mmol/L (21-32); CHLORIDE,CL 104 mmol/L (98-107); CREATININE 1.76 mg/dL (0.70-1.30); GLUCOSE RANDOM 110 mg/dL (70-99); LIPASE 36 U/L (16-77); POTASSIUM,K 5.4 mmol/L (3.5-5.1); PROTEIN TOTAL,TP 6.3 g/dL (6.4-8.2); SODIUM,NA 138 mmol/L (136-145)
[2024-12-31 22:20] LABS: A/G RATIO 1.03; C-REACTIVE PROTEIN < 0.50 ng/dL (<=0.50); ESTIMATED GFR 37 mL/min (>=60)
[2024-12-31 22:22] LABS: EOSINOPHILS PERCENT MAN 3 % (1-3); LYMPHOCYTES PERCENT MAN 13 % (20-50); MONOCYTES PERCENT MAN 23 % (2-8); SEG NEUTROPHILS PERCENT MAN 61 % (42-75)
[2024-12-31 22:24] LABS: LACTIC ACID 0.9 mmol/L (0.4-2.0)
[2024-12-31] MEDS: Iopamidol 612 MG/ML 100 ML Bottle IVPUSH ONE (22:42)
[2024-12-31] MEDS: Sodium Chloride 0.9% 1,000 ML IV ONE (23:01)
[2024-12-31] MEDS: Ondansetron 4 MG/2 ML SDV IVPUSH ONE (23:54)
[2025-01-01] MEDS: Sodium Chloride 0.9% 1,000 ML IV SCH (00:30)
[2025-01-01] MEDS ORDERED: Naloxone 2 MG/2 ML Syringe IVPUSH PRN (00:54)
[2025-01-01] MEDS: Morphine 2 MG/ML SYRINGE IVPUSH ONE (00:59)
[2025-01-01 01:51] VITALS: BP 127/82; PULSE 88
== END 2025-01-01 01:14 ==
LOC: DL.ED 21:08
DX: K56.609 Unspecified intestinal obstruction, unspecified as to partial versus complete obstruction (principal); N18.31 Chronic kidney disease, stage 3a; R10.84 Generalized abdominal pain; E78.00 Pure hypercholesterolemia, unspecified; K21.9 Gastro-esophageal reflux disease without esophagitis; Z79.82 Long term (current) use of aspirin; Z79.899 Other long term (current) drug therapy; Z88.0 Allergy status to penicillin; Z88.5 Allergy status to narcotic agent; Z88.8 Allergy status to other drugs, medicaments and biological substances
CPT/HCPCS: 36415; 74019; 74177; 80053; 83605; 83690; 85025; 86140; 96361; 96374; 96375; 99285; J2270; J2405; J7030; Q9967

== ENCOUNTER 2025-01-28 06:44 | Emergency (ER) | payer MEDICARE, OTHER ==
[2025-01-28 07:42] VITALS: BP 110/54; PULSE 77
== END 2025-01-28 07:42 | disposition home or self-care (01) ==
LOC: DL.ED 06:44
DX: N48.1 Balanitis (principal); E78.00 Pure hypercholesterolemia, unspecified; Z88.5 Allergy status to narcotic agent; Z88.8 Allergy status to other drugs, medicaments and biological substances; Z79.82 Long term (current) use of aspirin; Z79.899 Other long term (current) drug therapy; Z86.73 Personal history of transient ischemic attack (TIA), and cerebral infarction without residual deficits
CPT/HCPCS: 99283; 99284

== ENCOUNTER 2025-02-06 01:36 | Emergency (ER) | payer MEDICARE, OTHER ==
[2025-02-06] MEDS ORDERED: Sodium Chloride 0.9% 10 ML Syringe FLUSH PRN (02:21)
[2025-02-06 02:44] LABS: HEMATOCRIT 28.3 % (40.0-54.0); HEMOGLOBIN 9.3 g/dL (14.0-18.0); MEAN CORPUSCULAR HEMOGLOBIN 32.7 pg (27.0-34.0); MEAN CORPUSCULAR HGB CONC 32.9 g/dL (33.0-35.0); MEAN CORPUSCULAR VOLUME 99.6 fL (80-100); PLATELET COUNT,PLT 170 10^3/uL (150-450); RED BLOOD CELL COUNT 2.84 10^6/uL (4.6-6.2); WHITE BLOOD CELL COUNT,WBC 4.7 10^3/uL (5.0-10.0)
[2025-02-06] MEDS: Ondansetron 4 MG/2 ML SDV IVPUSH ONE (03:00)
[2025-02-06 03:06] LABS: BAND PERCENT MAN 1 %; EOSINOPHILS PERCENT MAN 3 % (1-3); LYMPHOCYTES PERCENT MAN 9 % (20-50); MONOCYTES PERCENT MAN 23 % (2-8); SEG NEUTROPHILS PERCENT MAN 64 % (42-75)
[2025-02-06 03:08] LABS: LACTIC ACID 0.5 mmol/L (0.4-2.0)
[2025-02-06 03:14] LABS: A/G RATIO 0.97; ALBUMIN 2.9 g/dL (3.4-5.0); ANION GAP 13.4 mEq/L (7-13); BILIRUBIN TOTAL 0.3 mg/dL (0.2-1.0); BUN/CREATININE RATIO 18.6 (No establ ref range); CALCIUM 8.7 mg/dL (8.5-10.1); CREATININE 1.45 mg/dL (0.70-1.30); EST CRCL DRUG DOSING (CG) 31.44 mL/min; MAGNESIUM 1.9 mg/dL (1.8-2.4); POTASSIUM,K 4.4 mmol/L (3.5-5.1); PROTEIN TOTAL,TP 5.9 g/dL (6.4-8.2)
[2025-02-06] MEDS: Sodium Chloride 0.9% 1,000 ML IV ONE (03:36)
[2025-02-06 04:28] LABS: APPEARANCE,URINE CLEAR (CLEAR); BILIRUBIN,URINE NEGATIVE (NEGATIVE); COLOR,URINE YELLOW (YELLOW); GLUCOSE,URINE NEGATIVE (NEGATIVE); KETONES,URINE NEGATIVE (NEGATIVE); LEUKOCYTE ESTERASE,URINE NEGATIVE (NEGATIVE); NITRITE,URINE NEGATIVE (NEGATIVE); OCCULT BLOOD,URINE NEGATIVE (NEGATIVE); PH,URINE 5.5 (5.0-9.0); PROTEIN,URINE NEGATIVE (NEGATIVE); UROBILINOGEN,URINE 0.2 mg/dL (0.2-1.0)
[2025-02-06 05:19] VITALS: PULSE 66
[2025-02-06 06:05] VITALS: BP 109/55
== END 2025-02-06 05:50 | disposition home or self-care (01) ==
LOC: DL.ED 01:36
DX: E86.0 Dehydration (principal); K52.9 Noninfective gastroenteritis and colitis, unspecified; E78.00 Pure hypercholesterolemia, unspecified; Z88.0 Allergy status to penicillin; Z88.8 Allergy status to other drugs, medicaments and biological substances; Z79.82 Long term (current) use of aspirin; Z79.899 Other long term (current) drug therapy; Z90.49 Acquired absence of other specified parts of digestive tract; K21.9 Gastro-esophageal reflux disease without esophagitis
CPT/HCPCS: 36415; 74177; 80053; 81003; 83605; 83690; 83735; 84484; 85025; 87428-QW; 93005; 96361; 96374; 99285-25; J2405; J7030

== ENCOUNTER 2025-03-01 15:29 | Emergency (ER) | payer MEDICARE, OTHER ==
[2025-03-01 16:07] LABS: PLATELET COUNT,PLT 168 10^3/uL (150-450); RED BLOOD CELL COUNT 2.92 10^6/uL (4.6-6.2); WHITE BLOOD CELL COUNT,WBC 3.6 10^3/uL (5.0-10.0)
[2025-03-01] MEDS: Iopamidol 612 MG/ML 100 ML Bottle IVPUSH ONE (16:23)
[2025-03-01 16:25] LABS: ALANINE AMINOTRANSFERASE,ALT 20.0 U/L (16-63); ASPARTATE AMNIOTRANSFERASE,AST 16.0 U/L (15-37); BILIRUBIN TOTAL 0.2 mg/dL (0.2-1.0); BLOOD UREA NITROGEN,BUN 28.0 mg/dL (7-18); CARBON DIOXIDE,CO2 26.0 mmol/L (21-32); CHLORIDE,CL 105.0 mmol/L (98-107); CREATININE 1.33 mg/dL (0.70-1.30); EST CRCL DRUG DOSING (CG) 37.86 mL/min; GLUCOSE RANDOM 110.0 mg/dL (70-99); POTASSIUM,K 4.3 mmol/L (3.5-5.1); PROTEIN TOTAL,TP 6.1 g/dL (6.4-8.2); SODIUM,NA 136.0 mmol/L (136-145)
[2025-03-01 16:26] LABS: A/G RATIO 1.03; ESTIMATED GFR 52.0 mL/min (>=60)
[2025-03-01 16:31] LABS: EOSINOPHILS PERCENT MAN 4 % (1-3); LYMPHOCYTES PERCENT MAN 26 % (20-50); MONOCYTES PERCENT MAN 27 % (2-8); SEG NEUTROPHILS PERCENT MAN 43 % (42-75)
[2025-03-01 17:04] VITALS: BP 114/58; PULSE 83
== END 2025-03-01 16:09 | disposition home or self-care (01) ==
LOC: DL.ED 15:29
DX: K59.00 Constipation, unspecified (principal); K55.1 Chronic vascular disorders of intestine; K21.9 Gastro-esophageal reflux disease without esophagitis; E78.00 Pure hypercholesterolemia, unspecified; Z88.0 Allergy status to penicillin; Z88.5 Allergy status to narcotic agent; Z88.8 Allergy status to other drugs, medicaments and biological substances; Z79.82 Long term (current) use of aspirin; Z79.899 Other long term (current) drug therapy; Z90.49 Acquired absence of other specified parts of digestive tract
CPT/HCPCS: 36415; 71045; 74177; 80053; 84484; 85025; 99284; A9270; Q9967; 99283

== ENCOUNTER 2025-04-03 09:58 | Emergency (ER) | payer MEDICARE, OTHER ==
[2025-04-03 10:32] VITALS: BP 117/57; PULSE 80
== END 2025-04-03 11:10 | disposition home or self-care (01) ==
LOC: DL.ED 09:58
DX: L03.113 Cellulitis of right upper limb (principal); S51.851A Open bite of right forearm, initial encounter; E78.00 Pure hypercholesterolemia, unspecified; Z88.5 Allergy status to narcotic agent; Z88.0 Allergy status to penicillin; Z79.82 Long term (current) use of aspirin; Z79.899 Other long term (current) drug therapy; Z86.73 Personal history of transient ischemic attack (TIA), and cerebral infarction without residual deficits; W55.01XA Bitten by cat, initial encounter; Y93.89 Activity, other specified
CPT/HCPCS: 99283

== ENCOUNTER 2025-05-28 04:05 | Emergency (ER) | payer MEDICARE, OTHER ==
[2025-05-28] MEDS: Ketorolac 30 MG/ML SDV IM ONE (04:54)
[2025-05-28 06:25] LABS: APPEARANCE,URINE CLEAR (CLEAR); GLUCOSE,URINE NEGATIVE (NEGATIVE); OCCULT BLOOD,URINE NEGATIVE (NEGATIVE)
[2025-05-28 06:57] VITALS: BP 117/62; PULSE 65
== END 2025-05-28 06:52 | disposition home or self-care (01) ==
LOC: DL.ED 04:05
DX: S39.012A Strain of muscle, fascia and tendon of lower back, initial encounter (principal); K21.9 Gastro-esophageal reflux disease without esophagitis; E78.00 Pure hypercholesterolemia, unspecified; Z88.0 Allergy status to penicillin; Z88.8 Allergy status to other drugs, medicaments and biological substances; Z79.899 Other long term (current) drug therapy; Z79.82 Long term (current) use of aspirin; Z90.49 Acquired absence of other specified parts of digestive tract; X58.XXXA Exposure to other specified factors, initial encounter
CPT/HCPCS: 81003; 96372; 99283; J1885

== ENCOUNTER 2025-06-08 07:28 | Emergency (ER) | payer MEDICARE, OTHER ==
[2025-06-08 08:14] VITALS: BP 118/62; PULSE 92
[2025-06-08] MEDS: Amoxicillin/Clavulanate K 875-125 MG Tab PO ONE (08:56)
[2025-06-08] MEDS: Take Home: Amoxicillin/Clavulanate K 875-125 MG Tab, 6 Tab Pack PO ONE (09:57)
== END 2025-06-08 10:00 | disposition home or self-care (01) ==
LOC: DL.ED 07:28
DX: S61.452A Open bite of left hand, initial encounter (principal); E78.00 Pure hypercholesterolemia, unspecified; K21.9 Gastro-esophageal reflux disease without esophagitis; Z86.73 Personal history of transient ischemic attack (TIA), and cerebral infarction without residual deficits; Z88.5 Allergy status to narcotic agent; Z88.0 Allergy status to penicillin; Z79.82 Long term (current) use of aspirin; Z79.899 Other long term (current) drug therapy; W55.01XA Bitten by cat, initial encounter
CPT/HCPCS: 73120; 99283; A9270

== ENCOUNTER 2025-07-11 16:11 | Emergency (ER) | payer MEDICARE, OTHER ==
[2025-07-11 16:34] VITALS: BP 146/69; PULSE 96
== END 2025-07-11 16:42 | disposition home or self-care (01) ==
LOC: DL.ED 16:11
DX: N48.1 Balanitis (principal); E78.00 Pure hypercholesterolemia, unspecified; Z88.5 Allergy status to narcotic agent; Z88.0 Allergy status to penicillin; Z79.82 Long term (current) use of aspirin; Z79.899 Other long term (current) drug therapy; Z86.73 Personal history of transient ischemic attack (TIA), and cerebral infarction without residual deficits
CPT/HCPCS: 99283; A9270

== ENCOUNTER 2025-07-19 14:43 | Emergency (ER) | payer MEDICARE, OTHER ==
[2025-07-19 17:06] LABS: APPEARANCE,URINE CLEAR (CLEAR); GLUCOSE,URINE NEGATIVE (NEGATIVE); OCCULT BLOOD,URINE TRACE-INTACT (NEGATIVE)
[2025-07-19 17:33] LABS: SQUAMOUS EPITHELIAL CELLS,UR FEW /HPF (NOT SEEN)
[2025-07-19] MEDS: Take Home: Acetaminophen/oxyCODONE 325-5 MG, 5 Tab Pack PO ONE (17:41)
[2025-07-19 17:48] VITALS: BP 147/59; PULSE 89
== END 2025-07-19 17:47 | disposition home or self-care (01) ==
LOC: DL.ED 14:43
DX: N48.1 Balanitis (principal); E78.00 Pure hypercholesterolemia, unspecified; K21.9 Gastro-esophageal reflux disease without esophagitis; Z88.5 Allergy status to narcotic agent; Z88.0 Allergy status to penicillin; Z79.82 Long term (current) use of aspirin; Z79.899 Other long term (current) drug therapy; Z86.73 Personal history of transient ischemic attack (TIA), and cerebral infarction without residual deficits
CPT/HCPCS: 81001; 99283; A9270; 99284